=== PATIENT | male | born 1945 | race Caucasian/White ===

== ENCOUNTER 2021-06-14 10:16 | Outpatient (REF) | payer MEDICARE, SELFPAY ==
[2021-06-14 10:23] LABS: MANUAL DIFF FLAG NO
[2021-06-14 10:54] LABS: Basophils Percent Auto 0.4 % (0-2); Eosinophils Absolute Auto 0.1 X10*3/uL (0.0-0.4); Eosinophils Percent Auto 3.2 % (0-4); Hematocrit 39.6 % (42-52); Hemoglobin 13.9 g/dl (14.0-18.0); Imm Gran Abs Auto 0.01 X10*3/uL (0.00-0.03); Imm Gran Pct Auto 0.4 % (0.0-0.4); Lymphocytes Absolute Auto 0.8 X10*3/uL (1.2-4.9); Lymphocytes Percent Auto 29.1 % (20-40); Mean Corpuscular HGB Conc 35.1 g/dl (31.0-36.0); Mean Corpuscular Hemoglobin 33.8 pg (27.0-33.0); Mean Corpuscular Volume 96.4 fL (80-98); Mean Platelet Volume 10.1 fL (9.4-12.4); Monocytes Absolute Auto 0.4 X10*3/uL (0.1-1.2); Monocytes Percent Auto 12.6 % (2-11); Neutrophils Absolute Auto 1.5 X10*3/uL (2.0-8.3); Neutrophils Percent Auto 54.3 % (45-73); Red Blood Count 4.11 X10*6/uL (4.60-5.80); Red Cell Distribution Width 15.3 % (11.0-16.0); White Blood Count 2.8 X10*3/uL (4.8-10.8)
[2021-06-14 10:55] LABS: Platelet Count 71 X10*3/uL (160-400)
[2021-06-14 11:35] LABS: Alanine Aminotransferase 31 U/L (0-40); Albumin Level 3.5 g/dL (3.5-5.0); Alkaline Phosphatase 113 U/L (39-117); Anion Gap 12 (12-20); Aspartate Amino Transferase 48 U/L (5-37); Bilirubin Total 2.2 mg/dL (0.0-1.0); Blood Urea Nitrogen 15 mg/dL (9-16); Calcium 8.7 mg/dL (8.4-10.2); Carbon Dioxide 22 mmol/L (22-29); Chloride 110 mmol/L (96-108); Cholesterol 102 mg/dL; Estimated Glomerular Filt Rate > 60; Glucose Fasting 248 mg/dL (60-99); HDL Cholesterol 35 mg/dL; LDL Cholesterol Calculated 56 mg/dl; Potassium 4.7 mmol/L (3.3-5.1); Sodium 139 mmol/L (135-145); Total Protein 6.8 g/dL (6.5-8.0); Triglycerides 59 mg/dL
[2021-06-14 11:56] LABS: Prostate Specific Antigen 0.57 ng/mL (<0.05-4.0)
[2021-06-14 13:09] LABS: Reflex LDLD? No
[2021-06-18 13:20] LABS: Alpha Fetoprotein 1.1 ng/mL (<6.1)
== END 2021-06-14 10:17 | disposition home or self-care (01) ==
LOC: HO.LNP 10:16
PROVIDERS: Visit Provider Internal Medicine
DX: Z12.5 Encounter for screening for malignant neoplasm of prostate (principal); K70.30 Alcoholic cirrhosis of liver without ascites; K72.90 Hepatic failure, unspecified without coma; D69.6 Thrombocytopenia, unspecified
CPT/HCPCS: 80053; 80061; 82105; 84153; 85025

== ENCOUNTER 2021-07-07 08:59 | Outpatient (REF) | payer MEDICARE, SELFPAY ==
--- NOTE | ~2021-07-07 | US_ITS ---
EXAMINATION: US ABDOMEN COMPLETE CLINICAL INFORMATION: Alcoholic cirrhosis of liver without ascites. COMPARISON: None TECHNIQUE: Real-time imaging of the abdominal viscera. FINDINGS: PANCREAS: Not well visualized due to bowel gas ABDOMINAL AORTA: The upper abdominal aorta is not well visualized due to bowel gas. The mid and distal abdominal aorta are normal in caliber. INFERIOR VENA CAVA: Visualized portions are normal. LIVER: The liver is cirrhotic. Liver echotexture is heterogeneous. No focal liver lesion is seen. There is a tips shunt with appropriate hepatopedal flow. There is a large recanalized paraumbilical vein. There is no intrahepatic biliary duct dilatation. GALLBLADDER: Normal. The gallbladder is physiologically distended without evidence of stones, sludge, polyps, wall thickening or pericholecystic fluid. COMMON BILE DUCT: Normal in caliber measuring 0.2 cm in diameter. RIGHT KIDNEY: Normal. No hydronephrosis. No renal calculi or focal parenchymal lesions. The kidney measures 10.4 cm in maximum dimension. LEFT KIDNEY: Normal. No hydronephrosis. No renal calculi or focal parenchymal lesions. The kidney measures 11.3 cm in maximum dimension. SPLEEN: The spleen is enlarged. The spleen measures 18.6 cm in maximum dimension. There is a 2.7 x 2.6 x 2.2 cm splenule. FREE FLUID: None. US/US abdomen complete IMPRESSION: Cirrhotic-appearing liver. Patent tips shunt. Splenomegaly. No ascites. Limited visualization of the pancreas and aorta.
== END 2021-07-07 09:00 | disposition home or self-care (01) ==
LOC: HO.US 08:59
PROVIDERS: PCP Internal Medicine; Visit Provider Internal Medicine
DX: K70.30 Alcoholic cirrhosis of liver without ascites (principal)
CPT/HCPCS: 76700

== ENCOUNTER 2021-08-26 16:31 | Emergency (ER) | payer MEDICARE, SELFPAY ==
--- NOTE | ~2021-08-26 | XR_ITS ---
EXAMINATION: XR TIBIA AND FIBULA, RIGHT CLINICAL INFORMATION: Nonhealing wound. Evaluate for osteomyelitis. COMPARISON: No similar priors. TECHNIQUE: AP and lateral views of the right tibia and fibula were obtained. FINDINGS: No acute fractures or malalignment. No definite cortical disruptions or erosions to suggest osteomyelitis. There is mild diffuse soft tissue edema without evidence of radiopaque foreign bodies or joint effusions. XR/XR tibia fibula RT 2V IMPRESSION: No obvious cortical disruptions or destructive changes to suggest osteomyelitis. However, early osteomyelitis can be radiographically occult; therefor if clinical concerning remains elevated, consider interval imaging in a few days or further evaluation with a different modality such as MR of the area of clinical concern. No acute fractures. Anatomic alignment.
[2021-08-26 16:36] VITALS: BP 136/68; PULSE 69; RESP 18; TEMP 36.6; O2SAT 95; BMI 24.4
[2021-08-26 17:34] VITALS: BP 155/70; PULSE 66; RESP 18; TEMP 36.7; O2SAT 97
[2021-08-26] MEDS: Diphth,Pertus(ACell),Tet Adult 0.5 ML SYRINGE IM (17:56)
--- NOTE | 2021-08-26 18:19 | ED_ITS ---
HPI - Wound/Laceration General Chief Complaint: Wound/Laceration Stated Complaint: wound on rt leg Time Seen by Provider: 08/26/21 16:50 Source: patient Mode of arrival: ambulatory Limitations: no limitations History of Present Illness HPI narrative: Patient presents to the ED for wound on right leg after hitting leg on his car while trying to enter his car 3 weeks ago. Patient denies fall to the ground or any pain. Patient's states no fever or chills, nausea, vomiting, leg swelling, calf pain, pus discharge,or foul odor since incident. Patient states having same wound since minor trauma occurred. Patient was concerned because he is diabetic. Related Data Previous Rx's Medication Instructions Recorded clindamycin HCl 300 mg capsule 300 mg PO Q8H 10 Days #30 cap 08/26/21 Allergies Allergy/AdvReac Type Severity Reaction Status Date / Time Penicillins [PENICILLINS] Allergy Unknown UNKNOWN Unverified 07/30/20 15:18 Review of Systems Review of Systems: Yes all other systems are reviewed and are negative Constitutional: Constitutional: Reports as per HPI Eyes: Eyes: Reports as per HPI ENT: Reports system reviewed and no additional complaints, except as documented Cardiovascular: Cardiovascular: Reports as per HPI and Reports no additional cardiovascular complaints Respiratory: Respiratory: Reports as per HPI and Reports no additional respiratory complaints Gastrointestinal: Gastrointestinal: Reports as per HPI and Reports no additional gastrointestinal complaints Genitourinary: Genitourinary: Reports no additional male genitourinary complaints and Reports as per HPI Musculoskeletal: Musculoskeletal: Reports no additional musculoskeletal complaints and Reports as per HPI Comments: Right leg wound Neurologic: Reports system reviewed and no additional complaints, except as documented and Reports as per HPI Psychiatric: Psychiatric: Reports no additional psychiatric complaints and Reports as per HPI [facility] Social History Social History Alcohol intake: never Patient Tobacco Use Status: Never used Tobacco Smoked in Last 30 Days: Yes Use of substances other than those prescribed or required for medical reasons: No Advance Directives: No Advance Directives Information Provided: No Physical Exam Vital Signs: Vital Signs: Last Vital Signs Temp 98.1 F 08/26/21 17:34 Pulse 66 08/26/21 17:34 Resp 18 08/26/21 17:34 BP 155/70 H 08/26/21 17:34 Pulse Ox 97 08/26/21 17:34 Body Mass Index 24.4 Const: General: cooperative, healthy appearing, comfortable, no acute distress, well developed, alert, awake and Physically active Orientation/consciousness: patient oriented x3 HENMT: Head: Yes normal to inspection, Yes No palpable skull fracture present, Yes normocephalic, Yes atraumatic and No abrasion Eyes: General: appearance normal, both eyes and all related structures Neck: Neck: Yes normal visual inspection, Yes full ROM, Yes no lymphadenopathy, Yes no meningeal signs, Yes trachea midline, Yes supple and No tender Chest: Chest palpation & inspection: normal inspection of the chest and normal palpation of entire chest wall Resp: Effort & Inspection: normal respiratory effort and able to speak in complete sentences Cardio: Jugular venous distension: no JVD Heart sounds: S1 normal heart ofelia nd present and S2 normal heart sound present GI: Inspection: Yes normal to inspection and No abdominal wall ecchymosis Palpation (GI): Soft to palpation, not firm, nontender, no guarding and not rigid : General: No CVA tenderness and Yes no CVA tenderness Back/Spine/Pelvis: Back: no CVA tenderness, No CVA tenderness and No back tenderness Skin: General skin exam: no rashes or lesions noted and elasticity normal Neuro: General: patient oriented x3, gait normal, no meningeal signs and CN's II-XI intact bilaterally Cranial nerves: Yes CN's II-XII intact bilaterally Extrem: Other: Wounds are more like abrasions. Negative for any pus discharge, foul odor, tenderness, or ecchymosis. Positive for pedal pulses. Negative for wounds. Motor, neuro, and vascular exam is intact. General: Yes normal to inspection and Yes full ROM Psych: Appearance: grossly normal, well kempt and not disheveled Course Course Course Narrative: Abrasions. What we will do labs and x-ray. Reevaluation(s) Reevaluation #1: Patient's x-ray came back negative for osteomyelitis. Patient labs came back with low platelets and anemia. Also mild liver abnormality. I went To discuss lab results twith patient and patient states he is already aware and has history of low platelets, anemia, and abnormal liver enzymes. He states he has a history of liver issues due to history of alcohol abuse. Patient states he has been sober for some years. Patient denies any rectal bl eeding or vomiting blood. Patient informed to follow-up with his primary care provider. Patient will be discharged with antibiotics due to history of diabetes to prevent any infection. Patient informed to follow-up with wound clinic. Time: 19:51 MDM - Wound/Laceration MDM Narrative Medical decision making narrative: Sent 50 13:00 Lab Data Result diagrams: 08/26/21 19:11 08/26/21 19:11 Labs: Lab Results 08/26/21 08/26/21 Range/Units 19:11 19:11 WBC 3.6 L (4.8-10.8) X10*3/uL RBC 3.57 L (4.60-5.80) X10*6/uL Hgb 12.4 L (14.0-18.0) g/dl Hct 33.6 L (42-52) % MCV 94.1 (80-98) fL MCH 34.7 H (27.0-33.0) pg MCHC 36.9 H (31.0-36.0) g/dl RDW 13.9 (11.0-16.0) % Plt Count 57 L (160-400) X10*3/uL MPV 10.2 (9.4-12.4) fL Immature Gran % (Auto) 0.3 (0.0-0.4) % Neut % (Auto) 54.1 (45-73) % Lymph % (Auto) 30.1 (20-40) % [place] % (Auto) 12.4 H (2-11) % Eos % (Auto) 2.8 (0-4) % Baso % (Auto) 0.3 (0-2) % Lymph # (Auto) 1.1 L (1.2-4.9) X10*3/uL [place] # (Auto) 0.4 (0.1-1.2) X10*3/uL Eos # (Auto) 0.1 (0.0-0.4) X10*3/uL Baso # (Auto) 0.0 (0.0-0.2) X10*3/uL Abs Immat Gran (auto) 0.01 (0.00-0.03) X10*3/uL Absolute Neuts (auto) 1.9 L (2.0-8.3) X10*3/uL Absolute Nucleated RBC 0.000 (0.0-0.012) X10*3/uL Nucleated RBC % (auto) 0.0 (0.0-0.2) /100WBC Sodium 141 (135-145) mmol/L Potassium 5.1 (3.3-5.1) mmol/L Chloride 112 H (96-108) mmol/L Carbon Dioxide 25 (22-29) mmol/L Anion Gap 9 L (12-20) BUN 17 H (9-16) mg/dL Creatinine 0.84 (0.5-1.4) mg/dL Estim Creat Clear Calc 80.8 Estimated GFR > 60 Random Glucose 156 H (60-115) mg/dL Calcium 8.6 (8.4-10.2) mg/dL Total Bilirubin 1.8 H (0.0-1.0) mg/dL AST 54 H (5-37) U/L ALT 33 (0-40) U/L Alkaline Phosphatase 121 H (39-117) U/L Total Protein 6.7 (6.5-8.0) g/dL Albumin 3.2 L (3.5-5.0) g/dL Discharge Plan Discharge Clinical Impression: Abrasion, Non-healing wound of right upper extremity Patient Disposition: Home, Self-Care Instructions: Abrasion (ED) Additional Instructions: Return to the ED for any swelling of lower extremity, pus discharge, foul odor, fever, chills, red streaks, redness, bluish black discoloration, chest pain, shortness of breath, numbness/tingling, or any other concerning symptoms. Prescriptions: New clindamycin HCl 300 mg capsule 300 mg PO Q8H 10 Days Qty: 30 RF: 0 Referrals: [facility] Wound Care Management [Provider Group] - 2 days (Right lower extremity abrasion/nonhealing wound after trauma. X-ray negative for osteomyelitis. Labs are baseline.) Interventions: ED Discharge Assessment Last Done: 08/26/21 20:08 Discharge Date/Time: 08/26/21 20:09 Print Language: Ukrainian
[2021-08-26 19:15] LABS: MANUAL DIFF FLAG NO
[2021-08-26 19:16] LABS: Basophils Percent Auto 0.3 % (0-2); Eosinophils Absolute Auto 0.1 X10*3/uL (0.0-0.4); Eosinophils Percent Auto 2.8 % (0-4); Hematocrit 33.6 % (42-52); Hemoglobin 12.4 g/dl (14.0-18.0); Imm Gran Abs Auto 0.01 X10*3/uL (0.00-0.03); Imm Gran Pct Auto 0.3 % (0.0-0.4); Lymphocytes Absolute Auto 1.1 X10*3/uL (1.2-4.9); Lymphocytes Percent Auto 30.1 % (20-40); Mean Corpuscular HGB Conc 36.9 g/dl (31.0-36.0); Mean Corpuscular Hemoglobin 34.7 pg (27.0-33.0); Mean Corpuscular Volume 94.1 fL (80-98); Mean Platelet Volume 10.2 fL (9.4-12.4); Monocytes Absolute Auto 0.4 X10*3/uL (0.1-1.2); Monocytes Percent Auto 12.4 % (2-11); Neutrophils Absolute Auto 1.9 X10*3/uL (2.0-8.3); Neutrophils Percent Auto 54.1 % (45-73); Platelet Count 57 X10*3/uL (160-400); Red Blood Count 3.57 X10*6/uL (4.60-5.80); Red Cell Distribution Width 13.9 % (11.0-16.0); White Blood Count 3.6 X10*3/uL (4.8-10.8)
[2021-08-26 19:35] LABS: Alanine Aminotransferase 33 U/L (0-40); Albumin Level 3.2 g/dL (3.5-5.0); Alkaline Phosphatase 121 U/L (39-117); Anion Gap 9 (12-20); Aspartate Amino Transferase 54 U/L (5-37); Bilirubin Total 1.8 mg/dL (0.0-1.0); Blood Urea Nitrogen 17 mg/dL (9-16); Calcium 8.6 mg/dL (8.4-10.2); Carbon Dioxide 25 mmol/L (22-29); Chloride 112 mmol/L (96-108); Creatinine Clr Calc Pharmacy 80.8; Estimated Glomerular Filt Rate > 60; Glucose Random 156 mg/dL (60-115); Potassium 5.1 mmol/L (3.3-5.1); Sodium 141 mmol/L (135-145); Total Protein 6.7 g/dL (6.5-8.0)
== END 2021-08-26 20:09 | disposition home or self-care (01) ==
PROVIDERS: Physician Assistant; Emergency Provider Emergency Medicine; PCP Internal Medicine
DX: S80.811A Abrasion, right lower leg, initial encounter (principal); E11.9 Type 2 diabetes mellitus without complications; D64.9 Anemia, unspecified; D69.6 Thrombocytopenia, unspecified; X58.XXXA Exposure to other specified factors, initial encounter; Y93.9 Activity, unspecified; Y92.9 Unspecified place or not applicable; Y99.9 Unspecified external cause status
CPT/HCPCS: 36415; 73590; 80053; 85025; 90471; 90715; 99284

== ENCOUNTER 2021-09-27 10:36 | Outpatient (REF) | payer MEDICARE, SELFPAY ==
[2021-09-27 10:39] LABS: MANUAL DIFF FLAG NO
[2021-09-27 11:26] LABS: Basophils Percent Auto 0.6 % (0-2); Eosinophils Absolute Auto 0.1 X10*3/uL (0.0-0.4); Eosinophils Percent Auto 1.7 % (0-4); Hematocrit 39.2 % (42.0-52.0); Hemoglobin 13.9 g/dl (14.0-18.0); Imm Gran Abs Auto 0.01 X10*3/uL (0.00-0.03); Imm Gran Pct Auto 0.3 % (0.0-0.4); Lymphocytes Absolute Auto 1.3 X10*3/uL (1.2-4.9); Lymphocytes Percent Auto 37.1 % (20-40); Mean Corpuscular HGB Conc 35.5 g/dl (31.0-36.0); Mean Corpuscular Hemoglobin 34.2 pg (27.0-33.0); Mean Corpuscular Volume 96.6 fL (80.0-98.0); Mean Platelet Volume 10.9 fL (9.4-12.4); Monocytes Absolute Auto 0.4 X10*3/uL (0.1-1.2); Neutrophils Absolute Auto 1.7 x10*3/uL (2.0-8.3); Neutrophils Percent Auto 49.3 % (45-73); Red Blood Count 4.06 X10*6/uL (4.60-5.80); Red Cell Distribution Width 14.2 % (11.0-16.0); White Blood Count 3.5 X10*3/uL (4.8-10.8)
[2021-09-27 11:35] LABS: Platelet Count 72 X10*3/uL (160-400)
== END 2021-09-27 10:37 | disposition home or self-care (01) ==
LOC: HO.LNP 10:36
PROVIDERS: Visit Provider Internal Medicine
DX: D69.6 Thrombocytopenia, unspecified (principal)
CPT/HCPCS: 85025

== ENCOUNTER 2021-12-26 13:03 | Inpatient (IN) | payer MEDICARE, SELFPAY ==
--- NOTE | ~2021-12-26 | CT_ITS ---
EXAMINATION: CT ABDOMEN AND PELVIS WITHOUT CONTRAST CLINICAL INFORMATION: Lower GI bleed. Rule out extensive colitis. COMPARISON: Ultrasound abdomen 07/07/2021 TECHNIQUE: Multidetector volumetric imaging was performed from the superior aspect of the liver through the pubic symphysis. Sagittal and coronal reformatted images were obtained on the technologist's workstation. This CT examination was performed using dose optimization techniques as appropriate, variously including the following: *Automated exposure control *Adjustment of mA and/or kV according to patient size (this includes techniques or standardized protocols for targeted exams where dose is matched to indication/reason for exam; i.e. extremities or head) *Use of iterative reconstruction technique DLP: 550 mGy-cm FINDINGS: LUNG BASES: The lung bases are clear. LIVER, GALLBLADDER, AND BILIARY TREE: The liver is normal in size, shape, and slightly heterogeneous attenuation. There is a stent following TIPS procedure. No focal hepatic lesion or biliary ductal dilatation is present. The gallbladder is unremarkable with no evidence of radiopaque gallstones, gallbladder wall thickening, or obvious pericholecystic inflammatory changes. PANCREAS: Unremarkable. SPLEEN: The spleen is enlarged measuring 17 cm. Adjacent and medial to the spleen are coils likely from splenic artery aneurysm coiling. ADRENAL GLANDS: The left adrenal gland appears slightly plump but suboptimally visualized. The right adrenal gland is normal. KIDNEYS AND URETERS: The kidneys are normal in size, shape, and attenuation. No hydronephrosis, hydroureter, or calculi seen. No perinephric stranding. BLADDER: Unremarkable. GASTROINTESTINAL TRACT: There is scattered stool and gas seen throughout the colon without any significant distention. There is a hyperdense material seen throughout the descending colon. The small bowel loops are normal caliber. No free air or free fluid seen. ABDOMINAL WALL: No significant hernia is appreciated. LYMPH NODES: Normal. VASCULAR: Unremarkable. PELVIC VISCERA: Unremarkable. OSSEOUS STRUCTURES: There are degenerative disc changes and vacuum disc phenomenon at all lumbar disc levels sparing the L5-S1 disc. There is mild spondylosis seen throughout lower dorsal and lumbar spine. No lytic or sclerotic process seen. CT/CT abdomen pelvis wo con IMPRESSION: No acute intra-abdominal process seen. Splenomegaly. 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 Mild heterogeneous liver with evidence of previous TIPS procedure. There is no ascites. Fleischner guidelines were followed.
[2021-12-26 13:21] VITALS: BP 132/58; PULSE 59; RESP 16; TEMP 36.1; O2SAT 99; BMI 24.4
[2021-12-26 13:39] LABS: MANUAL DIFF FLAG NO
[2021-12-26 13:50] LABS: Basophils Percent Auto 0.3 % (0-2); Eosinophils Absolute Auto 0.1 X10*3/uL (0.0-0.4); Eosinophils Percent Auto 2.4 % (0-4); Hematocrit 36.8 % (42.0-52.0); Hemoglobin 13.4 g/dl (14.0-18.0); Imm Gran Abs Auto 0.01 X10*3/uL (0.00-0.03); Imm Gran Pct Auto 0.3 % (0.0-0.4); Lymphocytes Absolute Auto 0.7 X10*3/uL (1.2-4.9); Lymphocytes Percent Auto 24.6 % (20-40); Mean Corpuscular HGB Conc 36.4 g/dl (31.0-36.0); Mean Corpuscular Hemoglobin 34.3 pg (27.0-33.0); Mean Corpuscular Volume 94.1 fL (80.0-98.0); Monocytes Absolute Auto 0.4 X10*3/uL (0.1-1.2); Monocytes Percent Auto 13.1 % (2-11); Neutrophils Absolute Auto 1.8 x10*3/uL (2.0-8.3); Neutrophils Percent Auto 59.3 % (45-73); Red Blood Count 3.91 X10*6/uL (4.60-5.80); Red Cell Distribution Width 13.8 % (11.0-16.0)
[2021-12-26 13:51] LABS: Platelet Count 62 X10*3/uL (160-400)
[2021-12-26 13:55] LABS: INTERNATIONAL NORM RATIO 1.5 (0.9-1.1); Prothrombin Time 16.8 SEC (9.9-13.0)
[2021-12-26 14:04] LABS: Anion Gap 8 (12-20); Blood Urea Nitrogen 13 mg/dL (9-16); Calcium 8.8 mg/dL (8.4-10.2); Carbon Dioxide 27 mmol/L (22-29); Chloride 105 mmol/L (96-108); Creatinine Clr Calc Pharmacy 79.8; Estimated Glomerular Filt Rate > 60; Glucose Random 258 mg/dL (60-115); Potassium 4.4 mmol/L (3.3-5.1); Sodium 136 mmol/L (135-145)
[2021-12-26 16:34] VITALS: BP 157/61; PULSE 59; RESP 18; O2SAT 100
--- NOTE | 2021-12-26 16:44 | ED.GIBLEED ---
HPI - GI Bleed General Chief complaint: GI Bleed Stated complaint: bleeding from rectum Time Seen by Provider: 12/26/21 16:35 Source: patient Mode of arrival: ambulatory Limitations: no limitations History of Present Illness HPI Narrative: This is a 76-year-old male came into the emergency department for evaluation of rectal bleeding. Rectal bleeding started since early this morning, patient describes bright red blood from the rectum, symptoms started about 4 days ago with nonbloody watery diarrhea without nausea or vomiting, today nonbloody watery diarrhea progressed to bright red blood per rectum, patient declined abdominal pain or nausea or vomiting, no fever or chills, no recent travel, no recent use of antibiotics, no history of bad food that the patient might have ingested, patient declined using anticoagulation. Last colonoscopy was 3-4 years ago done in different state reportedly was normal. Related Data Previous Rx's Medication Instructions Recorded clindamycin HCl 300 mg capsule 300 mg PO Q8H 10 Days #30 cap 08/26/21 Allergies Allergy/AdvReac Type Severity Reaction Status Date / Time Penicillins [PENICILLINS] Allergy Unknown UNKNOWN Unverified 07/30/20 15:18 Review of Systems Review of Systems: All other systems are reviewed and are negative Constitutional: Reports as per HPI and Reports no additional constitutional complaints Eyes: Reports as per HPI and Reports no additional eye complaints Reports system reviewed and no additional complaints, except as documented Cardiovascular: Reports as per HPI and Reports no additional cardiovascular complaints Respiratory: Reports as per HPI and Reports no additional respiratory complaints Gastrointestinal: Reports as per HPI and Reports no additional gastrointestinal complaints Genitourinary: Reports no additional female genitourinary complaints Musculoskeletal: Reports no additional musculoskeletal complaints Skin/Breast: Reports system reviewed and no additional complaints, except as docu Psychiatric: Reports no additional psychiatric complaints Endocrine: Reports no additional endocrine complaints Hematologic/Lymphatic: Reports no additional hematologic/lymphatic complaints Allergic/Immunologic: Reports no additional allergic/immunologic complaints Reports system reviewed and no additional complaints, except as documented and Reports Abnormal speech present [facility] Past Medical History Medical History Alcohol abuse Diabetes 1.5, managed as type 2 Social History Social History Alcohol intake: former Patient Tobacco Use Status: Never used Tobacco Use of substances other than those prescribed or required for medical reasons: No Advance Directives: No Advance Directives Information Provided: No Physical Exam Vital Signs: Vital Signs: Last Vital Signs Temp 97.6 F 12/26/21 18:15 Pulse 60 12/26/21 18:15 Resp 18 12/26/21 18:15 BP 145/82 H 12/26/21 18:15 Pulse Ox 99 12/26/21 18:15 BMI result Body Mass Index 24.4 Vital signs have been reviewed as appeared to be correct. Blood pressure normal. Heart rate normal. Respiration rate normal. Temperature normal. Oxygen saturation normal. Appearance: Alert. Oriented X3. No acute distress. Head: Normal external exam. Normocephalic. Atraumatic. No Siddiqi signs noted. No raccoon eyes noted Eyes: PERRLA. EOMI. Conjunctiva and sclera normal. Eyelids normal. ENT: TM's Normal. Pharynx normal. Uvula midline. Moist mucous membranes. No trismus noted. No drooling noted. No muffled voice noted. Neck: Normal inspection. Neck supple. FROM. No adenopathy. Thyroid Normal. No meningeal signs. No neck mass noted. CVS: Normal heart rate and rhythm. Heart sound normal. No murmurs noted. Pulses normal throughout. Respiratory: No respiratory distress. Painless inspiration. Breath sounds normal. No wheezes/rales/rhonchi noted. Chest nontender. No accessory muscle usage noted or decreased air movement noted. Abdomen: Soft and nontender. Bowel sounds normal in all 4 quadrants. No distention noted. No organomegaly noted. No visible injury noted. Rectal exam: Bright red blood per rectum, no active bleeding, no external hemorrhoid, no palpable internal hemorrhoid is appreciated. Back: No CVA tenderness. Full range of motion noted. Skin: Skin warm and dry. Normal skin color. Normal skin turgor. No rashes/lesions/lacerations noted. Extremities: No lower extremity edema. Extremities exhibit normal range of motion. Extremities nontender. Neuro: Oriented X 3. Cranial nerve exam: II-XII are grossly intact No motor deficit. No sensory deficit. Reflexes normal. Course Course Course Narrative: Assessment and plan. 76 years old male came in for evaluation of bright red blood per rectum, patient otherwise hemodynamically stable, CT is unremarkable, labs are also at his baseline. Will need observation, monitoring vital signs, serial CBC, urgent GI consult, will keep the patient NPO. MDM - GI Bleed Lab Data Attestation: I reviewed the patient's lab results. Result diagrams: 12/26/21 13:35 12/26/21 13:35 Labs: Lab Results 12/26/21 12/26/21 12/26/21 Range/Units 13:35 13:35 13:35 WBC 3.0 L (4.8-10.8) X10*3/uL RBC 3.91 L (4.60-5.80) X10*6/uL Hgb 13.4 L (14.0-18.0) g/dl Hct 36.8 L (42.0-52.0) % MCV 94.1 (80.0-98.0) fL MCH 34.3 H (27.0-33.0) pg MCHC 36.4 H (31.0-36.0) g/dl RDW 13.8 (11.0-16.0) % Plt Count 62 L (160-400) X10*3/uL MPV 11.0 (9.4-12.4) fL Immature Gran % (Auto) 0.3 (0.0-0.4) % Neut % (Auto) 59.3 (45-73) % Lymph % (Auto) 24.6 (20-40) % [place] % (Auto) 13.1 H (2-11) % Eos % (Auto) 2.4 (0-4) % Baso % (Auto) 0.3 (0-2) % Lymph # (Auto) 0.7 L (1.2-4.9) X10*3/uL [place] # (Auto) 0.4 (0.1-1.2) X10*3/uL Eos # (Auto) 0.1 (0.0-0.4) X10*3/uL Baso # (Auto) 0.0 (0.0-0.2) X10*3/uL Abs Immat Gran (auto) 0.01 (0.00-0.03) X10*3/uL Absolute Neuts (auto) 1.8 L (2.0-8.3) x10*3/uL Absolute Nucleated RBC 0.000 (0.0-0.012) X10*3/uL Nucleated RBC % (auto) 0.0 (0.0-0.2) /100WBC PT 16.8 H (9.9-13.0) SEC INR 1.5 H (0.9-1.1) Sodium 136 (135-145) mmol/L Potassium 4.4 (3.3-5.1) mmol/L Chloride 105 (96-108) mmol/L Carbon Dioxide 27 (22-29) mmol/L Anion Gap 8 L (12-20) BUN 13 (9-16) mg/dL Creatinine 0.85 (0.5-1.4) mg/dL Estim Creat Clear Calc 79.8 Estimated GFR > 60 Random Glucose 258 H D (60-115) mg/dL Calcium 8.8 (8.4-10.2) mg/dL Total Bilirubin 2.3 H (0.0-1.0) mg/dL Direct Bilirubin 0.5 (0.0-0.5) mg/dL AST 42 H (5-37) U/L ALT 29 (0-40) U/L Alkaline Phosphatase 94 D (39-117) U/L Total Protein 6.8 (6.5-8.0) g/dL Albumin 3.4 L (3.5-5.0) g/dL Lipase 46 (8-78) U/L Stool Occult Blood (NEGATIVE) 12/26/21 Range/Units 16:51 WBC (4.8-10.8) X10*3/uL RBC (4.60-5.80) X10*6/uL Hgb (14.0-18.0) g/dl Hct (42.0-52.0) % MCV (80.0-98.0) fL MCH (27.0-33.0) pg MCHC (31.0-36.0) g/dl RDW (11.0-16.0) % Plt Count (160-400) X10*3/uL MPV (9.4-12.4) fL Immature Gran % (Auto) (0.0-0.4) % Neut % (Auto) (45-73) % Lymph % (Auto) (20-40) % [place] % (Auto) (2-11) % Eos % (Auto) (0-4) % Baso % (Auto) (0-2) % Lymph # (Auto) (1.2-4.9) X10*3/uL [place] # (Auto) (0.1-1.2) X10*3/uL Eos # (Auto) (0.0-0.4) X10*3/uL Baso # (Auto) (0.0-0.2) X10*3/uL Abs Immat Gran (auto) (0.00-0.03) X10*3/uL Absolute Neuts (auto) (2.0-8.3) x10*3/uL Absolute Nucleated RBC (0.0-0.012) X10*3/uL Nucleated RBC % (auto) (0.0-0.2) /100WBC PT (9.9-13.0) SEC INR (0.9-1.1) Sodium (135-145) mmol/L Potassium (3.3-5.1) mmol/L Chloride (96-108) mmol/L Carbon Dioxide (22-29) mmol/L Anion Gap (12-20) BUN (9-16) mg/dL Creatinine (0.5-1.4) mg/dL Estim Creat Clear Calc Estimated GFR Random Glucose (60-115) mg/dL Calcium (8.4-10.2) mg/dL Total Bilirubin (0.0-1.0) mg/dL Direct Bilirubin (0.0-0.5) mg/dL AST (5-37) U/L ALT (0-40) U/L Alkaline Phosphatase (39-117) U/L Total Protein (6.5-8.0) g/dL Albumin (3.5-5.0) g/dL Lipase (8-78) U/L Stool Occult Blood POSITIVE (NEGATIVE) Imaging Data CT scan - abdomen: Attestation: I personally reviewed and interpreted this imaging study as follows: Radiologist's impression: No acute intra-abdominal process seen. ? Splenomegaly. 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 ? Mild heterogeneous liver with evidence of previous TIPS procedure. ? There is no ascites. Discharge Plan Discharge Clinical Impression: Lower gastrointestinal hemorrhage Patient Disposition: Admitted As Inpatient Prescriptions: No Action clindamycin HCl 300 mg capsule 300 mg PO Q8H 10 Days Qty: 30 0RF
[2021-12-26 16:57] LABS: OBS Int Ctl Valid YES; OBS1 POSITIVE (NEGATIVE)
[2021-12-26 17:25] LABS: Alanine Aminotransferase 29 U/L (0-40); Albumin Level 3.4 g/dL (3.5-5.0); Alkaline Phosphatase 94 U/L (39-117); Aspartate Amino Transferase 42 U/L (5-37); Bilirubin Direct 0.5 mg/dL (0.0-0.5); Bilirubin Total 2.3 mg/dL (0.0-1.0); Lipase 46 U/L (8-78); Total Protein 6.8 g/dL (6.5-8.0)
[2021-12-26 18:15] VITALS: BP 145/82; PULSE 60; RESP 18; TEMP 36.4; O2SAT 99
--- NOTE | 2021-12-26 20:40 | P.HPHOSP_ITS ---
History of Present Illness Date of Service: 12/26/21 Chief Complaint: bleeding per rectum This is a 76-year-old male with past medical history of alcohol abuse with history of liver cirrhosis and previous TIPS procedure and diabetes presents to the hospital with complaints of bright red blood per rectum. Patient reports that it occurred today, about 2-3 episodes, He has also had diarrhea for the past 4 days following every meal but today turned bright red blood. He denies having any abdominal pain, no nausea no vomiting, no hematemesis or hemoptysis. He reports that he has also had black stools in the past. He has had a colonoscopy in [place] in 2016/2017 which was normal. He denies taking any NSAIDs. Patient has a history of alcohol abuse but has not had any drink for years. He denies having any history of heartburn or gastric ulcers. He denies any chest pain, no shortness of breath, no urinary symptoms. No lower extremity edema. No headache, change in vision, no dizziness, no palpitations. On arrival to the ED patient hemodynamically stable with slightly elevated blood pressure otherwise no significant abnormality Labs are significant for WBC count 3.5 which is around his baseline, hemoglobin 13.5, hematocrit of 36.8, PT of 16.8, INR of 1.5, glucose of 250, bilirubin of 2.3 which is chronically elevated, AST of 42, COVID-19 negative, stool blood occult positive. 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 Mild heterogeneous liver with evidence of previous tips procedure. No ascites. Patient will be admitted for further management Review of Systems Review of Systems: Yes all other systems are reviewed and are negative [facility] Medical History Alcohol abuse Diabetes 1.5, managed as type 2 Hypertension Family History Father Cancer Mother DVT (deep venous thrombosis) Surgical History S/P TIPS (transjugular intrahepatic portosystemic shunt) Social History Alcohol intake: never Patient Tobacco Use Status: Never used Tobacco Use of substances other than those prescribed or required for medical reasons: No Advance Directives: No Advance Directives Information Provided: No Meds Allergies Allergy/AdvReac Type Severity Reaction Status Date / Time Penicillins [PENICILLINS] Allergy Unknown UNKNOWN Unverified 07/30/20 15:18 Active Medications: Current Medications Acetaminophen (Acetaminophen 325 Mg Tablet) 650 mg PO Q6H PRN PRN Reason: Pain, Mild (Pain Scale 1-3) Docusate Sodium (Docusate Sodium 100 Mg Capsule) 100 mg PO DAILY PRN PRN Reason: Constipation Ondansetron HCl (Ondansetron Hcl 4 Mg/2 Ml Vial) 4 mg IVPUSH Q8H PRN PRN Reason: Nausea and Vomiting Sodium Chloride (0.9 % Sodium Chloride Flush 3 Ml Syringe) 3 ml IVFLUSH [facility] Medications Medication Instructions Recorded Confirmed Last Taken Type amlodipine 5 mg tablet 1 tab PO DAILY 12/26/21 12/26/21 12/26/21 History donepezil 10 mg tablet 1 tab PO BEDTIME 12/26/21 12/26/21 12/25/21 History ferrous sulfate 325 mg (65 mg 1 tab PO DAILY 12/26/21 12/26/21 12/26/21 History iron) tablet (iron) pantoprazole 40 mg tablet,delayed 1 tab PO DAILY 12/26/21 12/26/21 12/26/21 History release rifaximin 550 mg tablet (Xifaxan) 1 tab PO BID 12/26/21 12/26/21 12/26/21 History sitagliptin 100 mg tablet (Januvia) 1 tab PO DAILY 12/26/21 12/26/21 12/26/21 History Physical Exam Vital Signs and Narrative: Vital Signs: Last Vital Signs Temp 97.6 F 12/26/21 18:15 Pulse 60 12/26/21 18:15 Resp 18 12/26/21 18:15 BP 145/82 H 12/26/21 18:15 Pulse Ox 99 12/26/21 18:15 BMI result Body Mass Index 24.4 Const: General: cooperative and no acute distress Orientation/consciousness: patient oriented x3 Eyes: General: appearance normal, both eyes and all related structures Pupils: Equal, round and reactive pupils present Resp: Effort & Inspection: normal respiratory effort Auscultation: clear to auscultation bilaterally Cardio: Rate: regular rate Rhythm: regular rhythm GI: Other: No tenderness, rebound or guarding Palpation (GI): Soft to palpation Auscultation: normal bowel sounds Skin: General skin exam: no rashes or lesions noted Neuro: General: patient oriented x3 Cranial nerves: Yes Equal, round and reactive pupils present Cognition (Neuro): normal cognition Extrem: General: Yes normal to inspection and Yes no pedal edema Results Labs CBC and Chem 7: 12/26/21 21:49 12/26/21 13:35 Labs: Laboratory Results - last 24 hr 12/26/21 12/26/21 12/26/21 13:35 13:35 13:35 Hgb 13.4 L MCV 94.1 MCH 34.3 H MCHC 36.4 H RDW 13.8 Plt Count 62 L MPV 11.0 Immature Gran % (Auto) 0.3 Neut % (Auto) 59.3 Lymph % (Auto) 24.6 [place] % (Auto) 13.1 H Eos % (Auto) 2.4 Baso % (Auto) 0.3 Lymph # (Auto) 0.7 L [place] # (Auto) 0.4 Eos # (Auto) 0.1 Baso # (Auto) 0.0 Abs Immat Gran (auto) 0.01 Absolute Neuts (auto) 1.8 L Absolute Nucleated RBC 0.000 Nucleated RBC % (auto) 0.0 PT 16.8 H INR 1.5 H Anion Gap 8 L Estim Creat Clear Calc 79.8 Estimated GFR > 60 Random Glucose 258 H D Calcium 8.8 Total Bilirubin 2.3 H Direct Bilirubin 0.5 AST 42 H ALT 29 Alkaline Phosphatase 94 D Total Protein 6.8 Albumin 3.4 L Lipase 46 Stool Occult Blood 12/26/21 16:51 Hgb MCV MCH MCHC RDW Plt Count MPV Immature Gran % (Auto) Neut % (Auto) Lymph % (Auto) [place] % (Auto) Eos % (Auto) Baso % (Auto) Lymph # (Auto) [place] # (Auto) Eos # (Auto) Baso # (Auto) Abs Immat Gran (auto) Absolute Neuts (auto) Absolute Nucleated RBC Nucleated RBC % (auto) PT INR Anion Gap Estim Creat Clear Calc Estimated GFR Random Glucose Calcium Total Bilirubin Direct Bilirubin AST ALT Alkaline Phosphatase Total Protein Albumin Lipase Stool Occult Blood POSITIVE Imaging Radiologist's Impressions: Impressions Abdomen/Pelvis CT 12/26/21 18:00 IMPRESSION: No acute intra-abdominal process seen. Splenomegaly. 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 Mild heterogeneous liver with evidence of previous TIPS procedure. There is no ascites. Fleischner guidelines were followed. Assessment and Plan (1) Lower gastrointestinal hemorrhage: Status: Acute Plan This is a 76-year-old male with past medical history of alcohol abuse, as well as diabetes hypertension who presents to the hospital with complaints of bright red blood per rectum. # acute GI bleed - likely lower GI - does not have elevated BUN, no history of heartburn, no history of NSAID use - patient is hemodynamically stable - hemoglobin has remained stable - GI consulted, no urgency for colonoscopy at this time given his stable hemoglobin- will evaluate patient in a.m. - will place on pantoprazole 40 IV b.i.d.given hx of alcohol abuse and liver ds - follow CBC - clear liquid diet # hypertension - stable - will continue home antihypertensive # diabetes - hold oral antihyperglycemics - start low-dose sliding scale insulin DVT prophylaxis: SCDs Quality Stroke Does the patient have a stroke diagnosis?: No VTE Prior VTE?: No VTE Risk Level:: Medical - moderate - high VTE Device Contraindication: N/A - Device Ordered VTE Drug Contraindication: Treatment Not Indicated
--- NOTE | 2021-12-26 20:53 | PHA.MEDREC ---
Pharmacy Consult ? Medication Reconciliation Pharmacy has completed the medication reconciliation. No remarkable issues. Rach Chow, CristianD
[2021-12-26 21:56] LABS: Hemoglobin 13.5 g/dl (14.0-18.0); Mean Platelet Volume 10.1 fL (9.4-12.4); Monocytes Percent Auto 12.3 % (2-11); PLT CLUMP 1; Red Cell Distribution Width 13.4 % (11.0-16.0); SCAN SMEAR FLAG 1
[2021-12-26 21:57] LABS: Basophils Percent Auto 0.9 % (0-2); Eosinophils Absolute Auto 0.1 X10*3/uL (0.0-0.4); Eosinophils Percent Auto 2.6 % (0-4); Hematocrit 37.1 % (42.0-52.0); Imm Gran Abs Auto 0.01 X10*3/uL (0.00-0.03); Imm Gran Pct Auto 0.3 % (0.0-0.4); Lymphocytes Absolute Auto 1.1 X10*3/uL (1.2-4.9); Lymphocytes Percent Auto 32.4 % (20-40); MANUAL DIFF FLAG SCAN; Mean Corpuscular HGB Conc 36.4 g/dl (31.0-36.0); Mean Corpuscular Hemoglobin 33.8 pg (27.0-33.0); Monocytes Absolute Auto 0.4 X10*3/uL (0.1-1.2); Neutrophils Absolute Auto 1.8 x10*3/uL (2.0-8.3); Neutrophils Percent Auto 51.5 % (45-73); Red Blood Count 3.99 X10*6/uL (4.60-5.80)
[2021-12-26 22:13] LABS: Platelet Count 63 X10*3/uL (160-400); White Blood Count 3.5 X10*3/uL (4.8-10.8)
[2021-12-26 22:14] LABS: SLIDE REVIEW VERIFIED
[2021-12-26 22:45] VITALS: BP 135/78; PULSE 64; RESP 18; O2SAT 99
[2021-12-27 00:36] VITALS: BP 133/62; PULSE 61; RESP 14; TEMP 36.6; O2SAT 98
--- NOTE | 2021-12-27 01:40 | PC.NURSE ---
I assumed care of this pt at 1900. Since that time the pt has been alert and oriented x 3, resting in stretcher awaiting an inpatient bed assignment. He is TBADM and verbalizes an understanding of this. He states he came to the ED for evaluation of rectal bleeding. Since I arrived there has been nop bleeding, no abd. pain, no nausea or vomiting. Respirations are non-labored, no chest pain. He has been taking PO ice chips without difficulty. He has no complaints. We will continue to monitor BryonRobert
[2021-12-27 01:45] LABS: COVID-19 Test Negative (Negative)
[2021-12-27 04:52] VITALS: BP 142/78; PULSE 56; RESP 14; TEMP 36.8; O2SAT 97
[2021-12-27 07:10] LABS: Anion Gap 11 (12-20); Blood Urea Nitrogen 11 mg/dL (9-16); Calcium 8.5 mg/dL (8.4-10.2); Carbon Dioxide 26 mmol/L (22-29); Chloride 108 mmol/L (96-108); Creatinine Clr Calc Pharmacy 85.9; Estimated Glomerular Filt Rate > 60; Glucose Random 118 mg/dL (60-115); Potassium 4.2 mmol/L (3.3-5.1); Sodium 141 mmol/L (135-145)
--- NOTE | 2021-12-27 07:17 | PM.GICN ---
History of Present Illness Data of Consult Service Date: 12/27/21 Requesting physician: Yisel Au Primary Care Provider: Ramos Gibson MD HPI Reason for consult: rectal bleeding 76-year-old male with past medical history of alcohol abuse with history of liver cirrhosis and s/p TIPS procedure and diabetes who I am seeing for assessment of bright red blood per rectum.? Patient reports about 2-3 episodes of bleeding with diarrhea, for the past 4 days following every meal and few episodes of incontinence with soiling. ? He denies having any abdominal pain, no nausea no vomiting, no hematemesis or hemoptysis.? Denies melena. He has had a colonoscopy in [place] in 2017/2017 which was normal.? He denies taking any NSAIDs.? Patient has a history of alcohol abuse but has not had any drink for years.? He denies having any history of heartburn or gastric ulcers.? He denies any chest pain, no shortness of breath, no urinary symptoms.? No lower extremity edema.? No headache, change in vision, no dizziness, no palpitations. 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 Mild heterogeneous liver with evidence of previous tips procedure.? No ascites. Review of Systems Review of Systems: Constitutional : No Weight loss, No Fever, No Chills ENT/Mouth : No sore throat, No Rhinorrhea Eyes: No Swelling, No Redness Cardiovascular : No Chest Pain, No SOB, No Edema Respiratory : No Cough, No Sputum, No Wheezing Gastrointestinal : see HPI Genitourinary : NO Dysuria, No Urinary Frequency, No Hematuria, No Urgency Musculoskeletal : No joint pain, No Myalgias, No Joint Swelling Skin : No Skin Lesions, No rash Neuro : No Weakness, No Numbness, No Dizziness, No Headache Psych : No Anxiety/Panic, No Depression Heme/Lymph: No Bruising, No Lymphadenopathy Endocrine : No Polyuria, No Polydipsia All other systems reviewed and are negative. Yes all other systems are reviewed and are negative [facility] Past Medical History Medical History Alcohol abuse Diabetes 1.5, managed as type 2 Hypertension Family History Family History Father Cancer Mother DVT (deep venous thrombosis) Surgical History Surgical History S/P TIPS (transjugular intrahepatic portosystemic shunt) Social History Social History Alcohol intake: never Patient Tobacco Use Status: Never used Tobacco Use of substances other than those prescribed or required for medical reasons: No Advance Directives: No Advance Directives Information Provided: No service: No Current occupational status: retired [employer] Allergies Allergy/AdvReac Type Severity Reaction Status Date / Time Penicillins [PENICILLINS] Allergy Unknown UNKNOWN Unverified 07/30/20 15:18 Active Medications: Current Medications Acetaminophen (Acetaminophen 325 Mg Tablet) 650 mg PO Q6H PRN PRN Reason: Pain, Mild (Pain Scale 1-3) Amlodipine Besylate (Amlodipine Besylate 5 Mg Tablet) 5 mg PO DAILY [facility]; Protocol Dextrose (Dextrose 50 % 25 Gm/50 Ml Syringe) 25 gm IVPUSH Q15M PRN; Protocol PRN Reason: per Hypoglycemia Standing Ord. Docusate Sodium (Docusate Sodium 100 Mg Capsule) 100 mg PO DAILY PRN PRN Reason: Constipation Donepezil HCl (Donepezil Hcl 10 Mg Tablet) 10 mg PO BEDTIME [facility] Glucose (Glucose Gel 15 Gm Gel..Gram.) 15 gm PO Q15M PRN; Protocol PRN Reason: per Hypoglycemia Standing Ord. Insulin Human Lispro (Insulin Lispro 100 Unit/Ml 3 Ml Vial) 0 unit SUBCUT QIDACHS [facility]; Protocol Ondansetron HCl (Ondansetron Hcl 4 Mg/2 Ml Vial) 4 mg IVPUSH Q8H PRN PRN Reason: Nausea and Vomiting Pantoprazole Sodium (Pantoprazole Sodium 40 Mg/10 Ml Vial) 40 mg IVPUSH BID@0630,1630 [facility] Rifaximin (Rifaximin 550 Mg Tablet) 550 mg PO BID [facility] Sodium Chloride (0.9 % Sodium Chloride Flush 3 Ml Syringe) 3 ml IVFLUSH QSHIFT [facility] Last Admin: 12/27/21 00:57 Dose: Not Given Documented by: Home Medications Medication Instructions Recorded Confirmed Last Taken Type amlodipine 5 mg tablet 1 tab PO DAILY 12/26/21 12/26/21 12/26/21 History donepezil 10 mg tablet 1 tab PO BEDTIME 12/26/21 12/26/21 12/25/21 History ferrous sulfate 325 mg (65 mg 1 tab PO DAILY 12/26/21 12/26/21 12/26/21 History iron) tablet (iron) pantoprazole 40 mg tablet,delayed 1 tab PO DAILY 12/26/21 12/26/21 12/26/21 History release rifaximin 550 mg tablet (Xifaxan) 1 tab PO BID 12/26/21 12/26/21 12/26/21 History sitagliptin 100 mg tablet (Januvia) 1 tab PO DAILY 12/26/21 12/26/21 12/26/21 History Physical Exam Vital Signs: Vital Signs: Last Vital Signs Temp 98.2 F 12/27/21 04:52 Pulse 56 12/27/21 04:52 Resp 14 12/27/21 04:52 BP 142/78 H 12/27/21 04:52 Pulse Ox 97 12/27/21 04:52 BMI result Body Mass Index 24.4 EXAM: GENERAL: The patient is well developed and nontoxic. VITAL SIGNS:see workflow HEENT: Nonicteric sclerae, PERRLA, EOMI. Oropharynx clear. Moist mucous membranes. Conjunctivae appear well perfused. No thyroid mass. CHEST: Chest wall is nontender. HEART: Regular rate and rhythm without murmurs. LUNGS: Clear to auscultation bilaterally. ABDOMEN: Soft, positive bowel sounds, nontender, no organomegaly.no flank tenderness GENITAL:not done RECTAL: not done SKIN: No rash, no excessive bruising, petechiae, or purpura. NEUROLOGIC: Cranial nerves II-XII intact without motor/sensory deficit. pych-nml affect MS--nml movement Const: General: cooperative and no acute distress Orientation/consciousness: patient oriented x3 Eyes: General: appearance normal, both eyes and all related structures Pupils: Equal, round and reactive pupils present Cardio: Rate: regular rate Rhythm: regular rhythm GI: Other: No tenderness, rebound or guarding Palpation (GI): Soft to palpation Auscultation: normal bowel sounds Skin: General skin exam: no rashes or lesions noted Neuro: General: patient oriented x3 Cranial nerves: Yes Equal, round and reactive pupils present Cognition (Neuro): normal cognition Extrem: General: Yes normal to inspection and Yes no pedal edema Results Labs CBC & Chem 7: 12/27/21 08:35 12/27/21 06:37 Labs: Short CBC 12/26/21 12/26/21 Range/Units 13:35 21:49 WBC 3.0 L 3.5 L (4.8-10.8) X10*3/uL Hgb 13.4 L 13.5 L (14.0-18.0) g/dl Hct 36.8 L 37.1 L (42.0-52.0) % Plt Count 62 L 63 L (160-400) X10*3/uL BMP 12/26/21 12/27/21 13:35 06:37 Sodium 136 141 Potassium 4.4 4.2 Chloride 105 108 Carbon Dioxide 27 26 BUN 13 11 Creatinine 0.85 0.79 Calcium 8.8 8.5 Liver Function 12/26/21 Range/Units 13:35 Total Bilirubin 2.3 H (0.0-1.0) mg/dL Direct Bilirubin 0.5 (0.0-0.5) mg/dL AST 42 H (5-37) U/L ALT 29 (0-40) U/L Alkaline Phosphatase 94 D (39-117) U/L Albumin 3.4 L (3.5-5.0) g/dL Assessment and Plan (1) Lower gastrointestinal hemorrhage: Status: Acute Plan 1/ Rectal bleeding, with no acute findings on imaging, ddx: hemorrhoidal, colitis, low lying rectal lesions, neoplasia. Prior hx of TIPS makes variceal bleeding very unlikely as portal system would be decompressed, clinically no evidence of TIPS malfunction PLAN: 1/ allow clears today 2/ colonoscopy tomorrow, cont to trend HGB 3/ check hematinics Procedures Date of Service Date of Service: 12/27/21
[2021-12-27 07:51] LABS: Glucose, Whole Blood 115 mg/dL (60-115)
--- NOTE | 2021-12-27 08:08 | HO.PM.IMPN ---
Subjective Subjective Date of Service: 12/27/21 Interval History: Gib Review of Systems Last episode of bleeding yesterday late afternoon Denies any abdominal pain or nausea or vomiting or fever chills Physical Exam Vital Signs: Vital Signs: Last Vital Signs Temp 98.2 F 12/27/21 04:52 Pulse 56 12/27/21 04:52 Resp 14 12/27/21 04:52 BP 142/78 H 12/27/21 04:52 Pulse Ox 97 12/27/21 04:52 BMI result Body Mass Index 24.4 Appearance: Alert.? Oriented X3.? not in distress.? cvs: rrr, [id number] , no murmur res: clear to auscultation ,no rhonchii or wheezing abd: no rebound or guarding ,nt, bs present. ext pulses present , no cyanosis . neuro: axo3 , nonfocal. Objective Data Active Medications Acetaminophen (Acetaminophen 325 Mg Tablet) 650 mg PO Q6H PRN PRN Reason: Pain, Mild (Pain Scale 1-3) Amlodipine Besylate (Amlodipine Besylate 5 Mg Tablet) 5 mg PO DAILY [facility]; Protocol Dextrose (Dextrose 50 % 25 Gm/50 Ml Syringe) 25 gm IVPUSH Q15M PRN; Protocol PRN Reason: per Hypoglycemia Standing Ord. Docusate Sodium (Docusate Sodium 100 Mg Capsule) 100 mg PO DAILY PRN PRN Reason: Constipation Donepezil HCl (Donepezil Hcl 10 Mg Tablet) 10 mg PO BEDTIME [facility] Glucose (Glucose Gel 15 Gm Gel..Gram.) 15 gm PO Q15M PRN; Protocol PRN Reason: per Hypoglycemia Standing Ord. Insulin Human Lispro (Insulin Lispro 100 Unit/Ml 3 Ml Vial) 0 unit SUBCUT QIDACHS [facility]; Protocol Last Admin: 12/27/21 08:02 Dose: Not Given Documented by: JO ANN Non-Admin Reason: No Insulin Coverage Ondansetron HCl (Ondansetron Hcl 4 Mg/2 Ml Vial) 4 mg IVPUSH Q8H PRN PRN Reason: Nausea and Vomiting Pantoprazole Sodium (Pantoprazole Sodium 40 Mg/10 Ml Vial) 40 mg IVPUSH BID@0630,1630 [facility] Rifaximin (Rifaximin 550 Mg Tablet) 550 mg PO BID [facility] Sodium Chloride (0.9 % Sodium Chloride Flush 3 Ml Syringe) 3 ml IVFLUSH QSHIFT [facility] Last Admin: 12/27/21 00:57 Dose: Not Given Documented by: RANI Non-Admin Reason: See Note Labs CBC & Chem 7: 12/27/21 08:35 12/27/21 06:37 Labs: Laboratory Results - last 24 hr 12/26/21 12/26/21 12/26/21 13:35 13:35 13:35 MCV 94.1 MCH 34.3 H MCHC 36.4 H RDW 13.8 Plt Count 62 L MPV 11.0 Immature Gran % (Auto) 0.3 Neut % (Auto) 59.3 Lymph % (Auto) 24.6 [place] % (Auto) 13.1 H Eos % (Auto) 2.4 Baso % (Auto) 0.3 Lymph # (Auto) 0.7 L [place] # (Auto) 0.4 Eos # (Auto) 0.1 Baso # (Auto) 0.0 Abs Immat Gran (auto) 0.01 Absolute Neuts (auto) 1.8 L Absolute Nucleated RBC 0.000 Nucleated RBC % (auto) 0.0 Smear Tech's Comments PT 16.8 H INR 1.5 H Anion Gap 8 L Estim Creat Clear Calc 79.8 Estimated GFR > 60 POC Glucose Random Glucose 258 H D Calcium 8.8 Total Bilirubin 2.3 H Direct Bilirubin 0.5 AST 42 H ALT 29 Alkaline Phosphatase 94 D Total Protein 6.8 Albumin 3.4 L Lipase 46 Stool Occult Blood COVID-19 (MARIA INES) COVID-19 Clin Com 12/26/21 12/26/21 12/27/21 16:51 21:49 01:26 MCV 93.0 MCH 33.8 H MCHC 36.4 H RDW 13.4 Plt Count 63 L MPV 10.1 Immature Gran % (Auto) 0.3 Neut % (Auto) 51.5 Lymph % (Auto) 32.4 [place] % (Auto) 12.3 H Eos % (Auto) 2.6 Baso % (Auto) 0.9 Lymph # (Auto) 1.1 L [place] # (Auto) 0.4 Eos # (Auto) 0.1 Baso # (Auto) 0.0 Abs Immat Gran (auto) 0.01 Absolute Neuts (auto) 1.8 L Absolute Nucleated RBC 0.000 Nucleated RBC % (auto) 0.0 Smear Tech's Comments VERIFIED PT INR Anion Gap Estim Creat Clear Calc Estimated GFR POC Glucose Random Glucose Calcium Total Bilirubin Direct Bilirubin AST ALT Alkaline Phosphatase Total Protein Albumin Lipase Stool Occult Blood POSITIVE COVID-19 ([facility] INES) Negative COVID-19 Clin Com See Note 12/27/21 12/27/21 06:37 07:39 MCV MCH MCHC RDW Plt Count MPV Immature Gran % (Auto) Neut % (Auto) Lymph % (Auto) [place] % (Auto) Eos % (Auto) Baso % (Auto) Lymph # (Auto) [place] # (Auto) Eos # (Auto) Baso # (Auto) Abs Immat Gran (auto) Absolute Neuts (auto) Absolute Nucleated RBC Nucleated RBC % (auto) Smear Tech's Comments PT INR Anion Gap 11 L Estim Creat Clear Calc 85.9 Estimated GFR > 60 POC Glucose 115 Random Glucose 118 H D Calcium 8.5 Total Bilirubin Direct Bilirubin AST ALT Alkaline Phosphatase Total Protein Albumin Lipase Stool Occult Blood COVID-19 ([facility] IN[facility]) COVID-19 Clin Com Assessment and Plan (1) Liver cirrhosis: Status: Acute (2) Lower gastrointestinal hemorrhage: Status: Acute Plan 76-year-old male with past medical history of alcohol abuse, as well as diabetes hypertension who presents to the hospital with complaints of bright red blood per rectum. 1. acute GI bleed- likely lower GI - does not have elevated BUN, no history of heartburn, no history of NSAID use - patient is hemodynamically stable h/h stable on pantoprazole 40 IV b.i.d.given hx of alcohol abuse and liver ds - follow CBC - clear liquid diet 2. hypertension: stightly elevated continue to moniter if needed will adjust home amlodipine. 3. diabetes - hold oral antihyperglycemics - start low-dose sliding scale insulin 4.?has liver cirrhosis and previous TIPS procedure?: still elevated bilirubin 2.3 range , elevated ast hypoalbuminemia mild coagulapthy will give albumin , encouraged for po intake once has colonscopy , may need vitamin k if still bleeding moniter liver function and electrolytes. DVT prophylaxis: SCDs Quality Stroke Does the patient have a stroke diagnosis?: No VTE Prior VTE?: No VTE Risk Level:: Medical - moderate - high VTE Device Contraindication: N/A - Device Ordered VTE Drug Contraindication: Treatment Not Indicated
[2021-12-27 08:47] LABS: Hematocrit 43.1 % (42.0-52.0); Hemoglobin 15.5 g/dl (14.0-18.0); Mean Corpuscular Hemoglobin 33.7 pg (27.0-33.0); Mean Corpuscular Volume 93.7 fL (80.0-98.0); Mean Platelet Volume 10.1 fL (9.4-12.4); Platelet Count 82 X10*3/uL (160-400); Red Cell Distribution Width 13.7 % (11.0-16.0); White Blood Count 3.9 X10*3/uL (4.8-10.8)
[2021-12-27 08:49] LABS: INTERNATIONAL NORM RATIO 1.4 (0.9-1.1); Prothrombin Time 15.9 SEC (9.9-13.0)
[2021-12-27] MEDS: rifAXIMin 550 MG TABLET PO ×2 (09:00→21:29)
[2021-12-27] MEDS: amLODIPine Besylate 5 MG TABLET PO (09:00)
--- NOTE | 2021-12-27 09:48 | MHC.CM.PN ---
PT REPORTS HE LIVES ALONE AND IS FULLY INDEPENDENT PT DENIES USING ANY DME AND HAS NO HOME OR COMMUNITY SERVICES PT REPORTS HE HAS A HCP NAMING HIS DAUGHTER BETH HIS AGENT PT CONFIRMS HIS PCP IS [facility] SORIANO IMM DELIVERED, ORIGINAL AT BEDSIDE, COPY SENT TO [facility] CURRENT DC PLAN IS HOME WITH NO SERVICES PT TO ARRANGE TRANSPORTATION
[2021-12-27 12:55] LABS: Glucose, Whole Blood 115 mg/dL (60-115)
[2021-12-27 16:00] VITALS: BP 132/61; PULSE 53; RESP 18; TEMP 36.7; O2SAT 98
[2021-12-27 17:36] LABS: Glucose, Whole Blood 99 mg/dL (60-115)
[2021-12-27] MEDS: Pantoprazole Sodium 40 MG/10 ML VIAL IVPUSH (18:15)
[2021-12-27] MEDS: 0.9 % Sodium Chloride Flush 3 ML SYRINGE IVFLUSH ×2 (18:16→19:46)
[2021-12-27] MEDS: Albumin Human 25 % 50 ML 100 ML IV (19:44)
[2021-12-27 20:00] VITALS: BP 144/79; PULSE 56; RESP 15; TEMP 37.1; O2SAT 98
[2021-12-27] MEDS: Donepezil HCl 10 MG TABLET PO (21:29)
[2021-12-27] MEDS: PEG 3350/Na Sulf,Bicarb,Cl/KCL 4,000 ML SOLN.RECON 4000 ML PO (21:30)
[2021-12-27 22:20] LABS: Glucose, Whole Blood 128 mg/dL (60-115)
[2021-12-28] VITALS (7 sets, daily range): BP systolic 121–159; BP diastolic 56–69; PULSE 56–65; RESP 14–18; TEMP 36.1–37; O2SAT 93–100
[2021-12-28] MEDS: Pantoprazole Sodium 40 MG/10 ML VIAL IVPUSH (05:55)
[2021-12-28 07:57] LABS: Glucose, Whole Blood 82 mg/dL (60-115)
[2021-12-28] MEDS: 0.9 % Sodium Chloride Flush 3 ML SYRINGE IVFLUSH (08:56)
[2021-12-28] MEDS: amLODIPine Besylate 5 MG TABLET PO (08:56)
[2021-12-28] MEDS: rifAXIMin 550 MG TABLET PO (08:56)
--- NOTE | 2021-12-28 10:27 | HO.PM.IMPN ---
Subjective Subjective Date of Service: 12/28/21 Interval History: F/u rectal bleed, no further bleed Review of Systems no abdominal pain, no rectal bleed, no sob, no dizziness Physical Exam Vital Signs: Vital Signs: Last Vital Signs Temp 97.9 F 12/28/21 07:31 Pulse 63 12/28/21 07:31 Resp 18 12/28/21 07:31 BP 122/60 12/28/21 07:31 Pulse Ox 93 12/28/21 07:31 BMI result Body Mass Index 24.4 Const: Other: General: AO X 3, no acute distress Resp: CTA bilateral CVS: S1,S2,RRR GI: +BS, NT, no distention, rectal exam defered Skin: No rash Neuro: motor grossly intact Psych: appropriate affect Objective Data Active Medications Acetaminophen (Acetaminophen 325 Mg Tablet) 650 mg PO Q6H PRN PRN Reason: Pain, Mild (Pain Scale 1-3) Amlodipine Besylate (Amlodipine Besylate 5 Mg Tablet) 5 mg PO DAILY [facility]; Protocol Last Admin: 12/28/21 08:56 Dose: 5 mg Documented by: WALT Dextrose (Dextrose 50 % 25 Gm/50 Ml Syringe) 25 gm IVPUSH Q15M PRN; Protocol PRN Reason: per Hypoglycemia Standing Ord. Docusate Sodium (Docusate Sodium 100 Mg Capsule) 100 mg PO DAILY PRN PRN Reason: Constipation Donepezil HCl (Donepezil Hcl 10 Mg Tablet) 10 mg PO BEDTIME [facility] Last Admin: 12/27/21 21:29 Dose: 10 mg Documented by: OMAR Glucose (Glucose Gel 15 Gm Gel..Gram.) 15 gm PO Q15M PRN; Protocol PRN Reason: per Hypoglycemia Standing Ord. Insulin Human Lispro (Insulin Lispro 100 Unit/Ml 3 Ml Vial) 0 unit SUBCUT QIDACHS [facility]; Protocol Last Admin: 12/28/21 08:04 Dose: Not Given Documented by: WALT Non-Admin Reason: No Insulin Coverage Ondansetron HCl (Ondansetron Hcl 4 Mg/2 Ml Vial) 4 mg IVPUSH Q8H PRN PRN Reason: Nausea and Vomiting Pantoprazole Sodium (Pantoprazole Sodium 40 Mg/10 Ml Vial) 40 mg IVPUSH BID@0630,1630 [facility] Last Admin: 12/28/21 05:55 Dose: 40 mg Documented by: OMAR Rifaximin (Rifaximin 550 Mg Tablet) 550 mg PO BID [facility] Last Admin: 12/28/21 08:56 Dose: 550 mg Documented by: WALT Sodium Chloride (0.9 % Sodium Chloride Flush 3 Ml Syringe) 3 ml IVFLUSH QSHIFT [facility] Last Admin: 12/28/21 08:56 Dose: 3 ml Documented by: WALT Labs CBC & Chem 7: 12/27/21 08:35 12/27/21 06:37 Labs: Laboratory Results - last 24 hr 12/27/21 12/27/21 12/27/21 12:52 17:32 21:55 POC Glucose 115 99 128 H 12/28/21 07:34 POC Glucose 82 Assessment and Plan (1) Lower gastrointestinal hemorrhage: Status: Acute Plan 76-year-old male with past medical history of alcohol abuse, as well as diabetes hypertension who presents to the hospital with complaints of bright red blood per rectum. 1. Rectal bleed.. no significant anemia, nature unclear -IV PPI -Colonoscopy today 2. Hypertension: Norvasc 3. diabetes--SSI - hold oral antihyperglycemics 4.?has liver cirrhosis and previous TIPS procedure. stable. to avoid alcohol DVT prophylaxis: SCDs Possible dc after colonoscopy Quality Stroke Does the patient have a stroke diagnosis?: No VTE Prior VTE?: No VTE Risk Level:: Medical - moderate - high VTE Device Contraindication: N/A - Device Ordered VTE Drug Contraindication: Treatment Not Indicated
[2021-12-28 10:54] LABS: Hematocrit 39.6 % (42.0-52.0); Hemoglobin 14.5 g/dl (14.0-18.0); Mean Corpuscular HGB Conc 36.6 g/dl (31.0-36.0); Mean Corpuscular Hemoglobin 33.9 pg (27.0-33.0); Mean Corpuscular Volume 92.5 fL (80.0-98.0); Mean Platelet Volume 9.9 fL (9.4-12.4); Red Blood Count 4.28 X10*6/uL (4.60-5.80); Red Cell Distribution Width 13.6 % (11.0-16.0); White Blood Count 3.3 X10*3/uL (4.8-10.8)
[2021-12-28 10:55] LABS: Platelet Count 76 X10*3/uL (160-400)
[2021-12-28 11:03] LABS: Alanine Aminotransferase 30 U/L (0-40); Albumin Level 3.6 g/dL (3.5-5.0); Alkaline Phosphatase 81 U/L (39-117); Anion Gap 10 (12-20); Aspartate Amino Transferase 51 U/L (5-37); Bilirubin Direct 0.6 mg/dL (0.0-0.5); Bilirubin Total 4.5 mg/dL (0.0-1.0); Blood Urea Nitrogen 13 mg/dL (9-16); Carbon Dioxide 27 mmol/L (22-29); Chloride 106 mmol/L (96-108); Creatinine Clr Calc Pharmacy 82.8; Estimated Glomerular Filt Rate > 60; Glucose Random 129 mg/dL (60-115); Potassium 4.1 mmol/L (3.3-5.1); Sodium 139 mmol/L (135-145)
[2021-12-28 11:10] LABS: Glucose, Whole Blood 118 mg/dL (60-115)
--- NOTE | 2021-12-28 12:14 | P.CONAN_ITS ---
[facility] Active Problems Active Problems: All Active Problems (Updated 12/27/21 @ 14:01 by Pascale Chavez MD) Liver cirrhosis (Acute) Lower gastrointestinal hemorrhage (Acute) Past Medical History Medical History Alcohol abuse Diabetes 1.5, managed as type 2 Hypertension Family History Family History Father Cancer Mother DVT (deep venous thrombosis) Family history of problems with anesthesia: No Surgical History Surgical History S/P TIPS (transjugular intrahepatic portosystemic shunt) History of Problems with Anesthesia: No Social History Social History Household Members: None Housing: Apartment Do you presently have visiting nurse or other home services: No Alcohol intake: never Patient Tobacco Use Status: Never used Tobacco service: No Current occupational status: retired [employer] Allergies Allergy/AdvReac Type Severity Reaction Status Date / Time Penicillins [PENICILLINS] Allergy Unknown UNKNOWN Verified 12/27/21 17:28 Active Medications: Current Medications Acetaminophen (Acetaminophen 325 Mg Tablet) 650 mg PO Q6H PRN PRN Reason: Pain, Mild (Pain Scale 1-3) Amlodipine Besylate (Amlodipine Besylate 5 Mg Tablet) 5 mg PO DAILY [facility]; Protocol Last Admin: 12/28/21 08:56 Dose: 5 mg Documented by: Dextrose (Dextrose 50 % 25 Gm/50 Ml Syringe) 25 gm IVPUSH Q15M PRN; Protocol PRN Reason: per Hypoglycemia Standing Ord. Docusate Sodium (Docusate Sodium 100 Mg Capsule) 100 mg PO DAILY PRN PRN Reason: Constipation Donepezil HCl (Donepezil Hcl 10 Mg Tablet) 10 mg PO BEDTIME [facility] Last Admin: 12/27/21 21:29 Dose: 10 mg Documented by: Glucose (Glucose Gel 15 Gm Gel..Gram.) 15 gm PO Q15M PRN; Protocol PRN Reason: per Hypoglycemia Standing Ord. Insulin Human Lispro (Insulin Lispro 100 Unit/Ml 3 Ml Vial) 0 unit SUBCUT QIDACHS [facility]; Protocol Last Admin: 12/28/21 11:39 Dose: Not Given Documented by: Ondansetron HCl (Ondansetron Hcl 4 Mg/2 Ml Vial) 4 mg IVPUSH Q8H PRN PRN Reason: Nausea and Vomiting Pantoprazole Sodium (Pantoprazole Sodium 40 Mg/10 Ml Vial) 40 mg IVPUSH BID@0630,1630 [facility] Last Admin: 12/28/21 05:55 Dose: 40 mg Documented by: Rifaximin (Rifaximin 550 Mg Tablet) 550 mg PO BID [facility] Last Admin: 12/28/21 08:56 Dose: 550 mg Documented by: Sodium Chloride (0.9 % Sodium Chloride Flush 3 Ml Syringe) 3 ml IVFLUSH QSHIFT [facility] Last Admin: 12/28/21 08:56 Dose: 3 ml Documented by: Home Medications Medication Instructions Recorded Confirmed Last Taken Type amlodipine 5 mg tablet 1 tab PO DAILY 12/26/21 12/26/21 12/26/21 History donepezil 10 mg tablet 1 tab PO BEDTIME 12/26/21 12/26/21 12/25/21 History ferrous sulfate 325 mg (65 mg 1 tab PO DAILY 12/26/21 12/26/21 12/26/21 History iron) tablet (iron) pantoprazole 40 mg tablet,delayed 1 tab PO DAILY 12/26/21 12/26/21 12/26/21 History release rifaximin 550 mg tablet (Xifaxan) 1 tab PO BID 12/26/21 12/26/21 12/26/21 History sitagliptin 100 mg tablet (Januvia) 1 tab PO DAILY 12/26/21 12/26/21 12/26/21 History Exam Exam Date and Time: December 28, 2021 1214 Height,Weight and Vital Signs: Height 6 ft Weight 81.647 kg Last Vital Signs Temp 98.6 F 12/28/21 11:46 Pulse 61 12/28/21 11:46 Resp 18 12/28/21 11:46 BP 132/62 12/28/21 11:46 Pulse Ox 99 12/28/21 11:46 Pertinent Lab Results Pertinent Lab Results: Laboratory Tests 12/26/21 12/26/21 12/26/21 13:35 13:35 13:35 WBC 3.0 L RBC 3.91 L Hgb 13.4 L Hct 36.8 L MCV 94.1 MCH 34.3 H MCHC 36.4 H RDW 13.8 Plt Count 62 L MPV 11.0 Immature Gran % (Auto) 0.3 Neut % (Auto) 59.3 Lymph % (Auto) 24.6 [place] % (Auto) 13.1 H Eos % (Auto) 2.4 Baso % (Auto) 0.3 Lymph # (Auto) 0.7 L [place] # (Auto) 0.4 Eos # (Auto) 0.1 Baso # (Auto) 0.0 Abs Immat Gran (auto) 0.01 Absolute Neuts (auto) 1.8 L Absolute Nucleated RBC 0.000 Nucleated RBC % (auto) 0.0 Smear Tech's Comments PT 16.8 H INR 1.5 H Sodium 136 Potassium 4.4 Chloride 105 Carbon Dioxide 27 Anion Gap 8 L BUN 13 Creatinine 0.85 Estim Creat Clear Calc 79.8 Estimated GFR > 60 POC Glucose Random Glucose 258 H D Calcium 8.8 Total Bilirubin 2.3 H Direct Bilirubin 0.5 AST 42 H ALT 29 Alkaline Phosphatase 94 D Total Protein 6.8 Albumin 3.4 L Lipase 46 Stool Occult Blood COVID-19 (MARIA INES) [employer] 12/26/21 12/26/21 12/27/21 16:51 21:49 01:26 WBC 3.5 L RBC 3.99 L Hgb 13.5 L Hct 37.1 L MCV 93.0 MCH 33.8 H MCHC 36.4 H RDW 13.4 Plt Count 63 L MPV 10.1 Immature Gran % (Auto) 0.3 Neut % (Auto) 51.5 Lymph % (Auto) 32.4 [place] % (Auto) 12.3 H Eos % (Auto) 2.6 Baso % (Auto) 0.9 Lymph # (Auto) 1.1 L [place] # (Auto) 0.4 Eos # (Auto) 0.1 Baso # (Auto) 0.0 Abs Immat Gran (auto) 0.01 Absolute Neuts (auto) 1.8 L Absolute Nucleated RBC 0.000 Nucleated RBC % (auto) 0.0 Smear Tech's Comments VERIFIED PT INR Sodium Potassium Chloride Carbon Dioxide Anion Gap BUN Creatinine Estim Creat Clear Calc Estimated GFR POC Glucose Random Glucose Calcium Total Bilirubin Direct Bilirubin AST ALT Alkaline Phosphatase Total Protein Albumin Lipase Stool Occult Blood POSITIVE COVID-19 (MARIA INES) Negative COVID-19 Clin Com See Note 12/27/21 12/27/21 12/27/21 06:37 07:39 08:35 WBC 3.9 L RBC 4.60 Hgb 15.5 Hct 43.1 MCV 93.7 MCH 33.7 H MCHC 36.0 RDW 13.7 Plt Count 82 L D MPV 10.1 Immature Gran % (Auto) Neut % (Auto) Lymph % (Auto) [place] % (Auto) Eos % (Auto) Baso % (Auto) Lymph # (Auto) [place] # (Auto) Eos # (Auto) Baso # (Auto) Abs Immat Gran (auto) Absolute Neuts (auto) Absolute Nucleated RBC 0.000 Nucleated RBC % (auto) 0.0 Smear Tech's Comments PT INR Sodium 141 Potassium 4.2 Chloride 108 Carbon Dioxide 26 Anion Gap 11 L BUN 11 Creatinine 0.79 Estim Creat Clear Calc 85.9 Estimated GFR > 60 POC Glucose 115 Random Glucose 118 H D Calcium 8.5 Total Bilirubin Direct Bilirubin AST ALT Alkaline Phosphatase Total Protein Albumin Lipase Stool Occult Blood COVID-19 (MARIA INES) [employer] 12/27/21 12/27/21 12/27/21 08:35 12:52 17:32 WBC RBC Hgb Hct MCV MCH MCHC RDW Plt Count MPV Immature Gran % (Auto) Neut % (Auto) Lymph % (Auto) [place] % (Auto) Eos % (Auto) Baso % (Auto) Lymph # (Auto) [place] # (Auto) Eos # (Auto) Baso # (Auto) Abs Immat Gran (auto) Absolute Neuts (auto) Absolute Nucleated RBC Nucleated RBC % (auto) Smear Tech's Comments PT 15.9 H INR 1.4 H Sodium Potassium Chloride Carbon Dioxide Anion Gap BUN Creatinine Estim Creat Clear Calc Estimated GFR POC Glucose 115 99 Random Glucose Calcium Total Bilirubin Direct Bilirubin AST ALT Alkaline Phosphatase Total Protein Albumin Lipase Stool Occult Blood COVID-19 (MARIA INES) [employer] 12/27/21 12/28/21 12/28/21 21:55 07:34 10:28 WBC 3.3 L RBC 4.28 L Hgb 14.5 Hct 39.6 L MCV 92.5 MCH 33.9 H MCHC 36.6 H RDW 13.6 Plt Count 76 L MPV 9.9 Immature Gran % (Auto) Neut % (Auto) Lymph % (Auto) [place] % (Auto) Eos % (Auto) Baso % (Auto) Lymph # (Auto) [place] # (Auto) Eos # (Auto) Baso # (Auto) Abs Immat Gran (auto) Absolute Neuts (auto) Absolute Nucleated RBC 0.000 Nucleated RBC % (auto) 0.0 Smear Tech's Comments PT INR Sodium Potassium Chloride Carbon Dioxide Anion Gap BUN Creatinine Estim Creat Clear Calc Estimated GFR POC Glucose 128 H 82 Random Glucose Calcium Total Bilirubin Direct Bilirubin AST ALT Alkaline Phosphatase Total Protein Albumin Lipase Stool Occult Blood COVID-19 (MARIA INES) COVID-19 [facility] 12/28/21 12/28/21 10:28 10:57 WBC RBC Hgb Hct MCV MCH MCHC RDW Plt Count MPV Immature Gran % (Auto) Neut % (Auto) Lymph % (Auto) [place] % (Auto) Eos % (Auto) Baso % (Auto) Lymph # (Auto) [place] # (Auto) Eos # (Auto) Baso # (Auto) Abs Immat Gran (auto) Absolute Neuts (auto) Absolute Nucleated RBC Nucleated RBC % (auto) Smear Tech's Comments PT INR Sodium 139 Potassium 4.1 Chloride 106 Carbon Dioxide 27 Anion Gap 10 L BUN 13 Creatinine 0.82 Estim Creat Clear Calc 82.8 Estimated GFR > 60 POC Glucose 118 H Random Glucose 129 H Calcium 9.0 Total Bilirubin 4.5 H Direct Bilirubin 0.6 H AST 51 H ALT 30 Alkaline Phosphatase 81 Total Protein 7.0 Albumin 3.6 Lipase Stool Occult Blood COVID-19 (MARIA INES) COVID-19 EpiEP Com Airway Mallampati Class: I TM Dist: >3cm Neck ROM: Full Denture: Upper and Lower Assessment and Plan Assessment Anesthesia Assessment: Anesthesia Plan Discussed and Chart Reviewed Final Anesthetic Review Family History of Problems with Anesthesia: No History of Problems with Anesthesia: No NPO: Yes ASA Class: III Final Preanesthetic Review: No Changes in Pt Med Stat, Meds/Allgs Chart Reviewed, Consent Obtained/Reviewed and Anes Risks/Benef Reviewed Patient Risk: Intermediate Procedure Risk: Low Anesthetic Plan Anesthetic Plan: MAC: Disposition: Standard PACU
[2021-12-28 12:16] LABS: Glucose, Whole Blood 111 mg/dL (60-115)
--- NOTE | 2021-12-28 12:30 | MHC.SHP ---
Pre-Procedural Eval Section A Date of Service: 12/28/21 The patient is an INPATIENT: Yes The History & Physical has been completed within 30 days and I have reviewed it.: Yes Section B Chief Complaint: GI Bleed Allergies: Allergies Allergy/AdvReac Type Severity Reaction Status Date / Time Penicillins [PENICILLINS] Allergy Unknown UNKNOWN Verified 12/27/21 17:28 Plan I have reviewed the history and physical and performed a pertinent physical examination on my patient. No changes have occurred unless specified.
--- NOTE | 2021-12-28 12:30 | PM.OP ---
Brief Operative Note Date of Service: 12/28/21 Pre-op diagnosis: rectal bleeding Post-op diagnosis: same Procedure: see op note Surgeon: Ladan Adrian MD Anesthesia: MAC Was an Painter Chassis used for this Procedure?: No Estimated blood loss (mL): 0 Condition: stable Disposition: PACU
--- NOTE | 2021-12-28 12:31 | P.OP_ITS ---
Operative Note Operative Note Date of Service: 12/28/21 Narrative: Operative Information Procedure Description: Colonoscopy COLONOSCOPY Instrument: Olympus variable stiffness adult scope 190L Colonoscopy Monitoring: Vital signs and clinical assessment, continuous EKG monitoring, Pulse oximetry, Carbon Dioxide monitoring and blood pressure monitoring were done throughout the procedure. Colon withdrawal time was 13 minutes. Procedure: The patient was placed in the left lateral decubitis position and pre-procedure medications were administered. After a digital rectal examination of the ano-rectum, the video colonoscope was inserted into the rectum and advanced through the colon to the cecum/TI. The colonoscope was slowly withdrawn in a retrograde panoramic fashion and the colon mucosa was carefully examined including a retroflexed view of the rectum. Findings and interventions are described below. Procedure Difficulty: easy Findings: Terminal Ileum-normal Cecum: diminutive polyp 3-4 mm removed with forceps Ascending Colon: normal Transverse Colon -normal Descending Colon:normal Sigmoid Colon: normal Rectum: Retroflexion with moderate sized internal hemorrhoids, grade I Anorectum - normal Colon preparation: [place] Bowel Preparation Scale Right colon; 2 Transverse colon: 2 Left colon; 2 (0 = Unprepared colon segment with mucosa not seen due to solid stool that cannot be cleared. 1 = Portion of mucosa of the colon segment seen, but other areas of the colon segment not well seen due to staining, residual stool and/or opaque liquid. 2 = Minor amount of residual staining, small fragments of stool and/or opaque liquid, but mucosa of colon segment seen well. 3 = Entire mucosa of colon segment seen well with no residual staining, small fragments of stool or opaque liquid) Impression and Post Procedure Diagnosis: polyp internal hemorrhoids Plan: High fiber diet leaflet Avoid straining at stool, epsom salts and sitz bath, anusol supps or cream Repeat Colonoscopy in 5 years if adenoma and health allows otherwise no further screening colonoscopy unless clinically indicated ok to go home Above findings were reviewed with the patient and relevant handouts were provided if indicated.
--- NOTE | 2021-12-28 15:47 | MHC.CM.PN ---
PATIENT IS DISCHARGED HOME - SELF CARE RN AWARE OF PLAN.
--- NOTE | 2021-12-28 16:02 | PM.DS ---
DS: Providers Provider Date of Service: 12/28/21 Date of admission: 12/26/21 20:33 Primary care physician: Ramos Gibson MD Consults: 12/26/21 20:33 Consult to Gastroenterology Routine Consulting Provider: Ladan Adrian Reason for consultation: GI bleed Has provider been notified: No DS: Diagnosis Discharge Diagnosis (1) Lower gastrointestinal hemorrhage: Status: Acute DS: Summary Hospital Course Hospital Course: Chief Complaint: bleeding per rectum This is a 76-year-old male with past medical history of alcohol abuse with history of liver cirrhosis and previous TIPS procedure and diabetes presents to the hospital with complaints of bright red blood per rectum.? Patient reports that it occurred today, about 2-3 episodes,? He has also had diarrhea for the past 4 days following every meal but today turned bright red blood. ? He denies having any abdominal pain, no nausea no vomiting, no hematemesis or hemoptysis.? He reports that he has also had black stools in the past.? He has had a colonoscopy in [place] in 2016/2017 which was normal.? He denies taking any NSAIDs.? Patient has a history of alcohol abuse but has not had any drink for years.? He denies having any history of heartburn or gastric ulcers.? He denies any chest pain, no shortness of breath, no urinary symptoms.? No lower extremity edema.? No headache, change in vision, no dizziness, no palpitations. On arrival to the ED patient hemodynamically stable with slightly elevated blood pressure otherwise no significant abnormality Labs are significant for WBC count 3.5 which is around his baseline, hemoglobin 13.5, hematocrit of 36.8, PT of 16.8, INR of 1.5, glucose of 250, bilirubin of 2.3 which is chronically elevated, AST of 42, COVID-19 negative, stool blood occult positive.? 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 Mild heterogeneous liver with evidence of previous tips procedure.? No ascites. Patient will be admitted for further management Hospital course: Patient was observed, Hemoglobin and hematocrit did not drop. He had colonoscopy with the following finding and recommendations by Dr. Adrian Finding: polyp internal hemorrhoids Plan: High fiber diet leaflet Avoid straining at stool, epsom salts and sitz bath, anusol supps or cream Repeat Colonoscopy in 5 years if adenoma and health allows otherwise no further screening colonoscopy unless clinically indicated Time Spent with Patient Time attestation: Total time spent providing and/or coordinating discharge services: Discharge coordination time: Greater than 30 minutes Quality: Stroke Does the patient have a stroke diagnosis?: No Physical Exam Vital Signs: Vital Signs: Last Vital Signs Temp 97.8 F 12/28/21 15:27 Pulse 61 12/28/21 15:27 Resp 15 12/28/21 15:27 BP 134/60 12/28/21 15:27 Pulse Ox 95 12/28/21 15:27 BMI result Body Mass Index 24.4 DS: Data Data Completed and Pending Pending studies at discharge: Pending at discharge 12/28/21 12:57 Surgical [PTH] Routine Labs on day of discharge: Laboratory Results - last 24 hr 12/27/21 12/27/21 12/28/21 17:32 21:55 07:34 WBC RBC Hgb Hct MCV MCH MCHC RDW Plt Count MPV Absolute Nucleated RBC Nucleated RBC % (auto) Sodium Potassium Chloride Carbon Dioxide Anion Gap BUN Creatinine Estim Creat Clear Calc Estimated GFR POC Glucose 99 128 H 82 Random Glucose Calcium Total Bilirubin Direct Bilirubin AST ALT Alkaline Phosphatase Total Protein Albumin 12/28/21 12/28/21 12/28/21 10:28 10:28 10:57 WBC 3.3 L RBC 4.28 L Hgb 14.5 Hct 39.6 L MCV 92.5 MCH 33.9 H MCHC 36.6 H RDW 13.6 Plt Count 76 L MPV 9.9 Absolute Nucleated RBC 0.000 Nucleated RBC % (auto) 0.0 Sodium 139 Potassium 4.1 Chloride 106 Carbon Dioxide 27 Anion Gap 10 L BUN 13 Creatinine 0.82 Estim Creat Clear Calc 82.8 Estimated GFR > 60 POC Glucose 118 H Random Glucose 129 H Calcium 9.0 Total Bilirubin 4.5 H Direct Bilirubin 0.6 H AST 51 H ALT 30 Alkaline Phosphatase 81 Total Protein 7.0 Albumin 3.6 12/28/21 11:51 WBC RBC Hgb Hct MCV MCH MCHC RDW Plt Count MPV Absolute Nucleated RBC Nucleated RBC % (auto) Sodium Potassium Chloride Carbon Dioxide Anion Gap BUN Creatinine Estim Creat Clear Calc Estimated GFR POC Glucose 111 Random Glucose Calcium Total Bilirubin Direct Bilirubin AST ALT Alkaline Phosphatase Total Protein Albumin Discharge Plan Discharge Anticipated Discharge Date/Time: 12/28/21 15:31 Patient Disposition: Home, Self-Care Discharge Diagnosis: Hemorrhoid Referrals: Ramos Gibson MD [Primary Care Provider] - 1 Week Discharge Medications: Continued donepezil 10 mg tablet 1 tab PO BEDTIME 0RF amlodipine 5 mg tablet 1 tab PO DAILY 0RF pantoprazole 40 mg tablet,delayed release (DR/EC) 1 tab PO DAILY 0RF ferrous sulfate [iron] 325 mg (65 mg iron) tablet 1 tab PO DAILY 0RF Januvia 100 mg tablet 1 tab PO DAILY 0RF Xifaxan 550 mg tablet 1 tab PO BID 0RF Discharge Orders: Discharge Order (Routine); Ordered 12/28/21 Ordered By: Kai Diaz Diet: advance to usual diet Activity on Discharge: As tolerated Stand Alone Forms: Patient Portal Discharge page Care Plan Goals: resolved bleeding issues Health Concerns: hemmorhoid Plan of Treatment: High fiber diet leaflet Avoid straining at stool, epsom salts and sitz bath, anusol supps or cream (Over the counter) Repeat Colonoscopy in 5 years if adenoma and health allows otherwise no further screening colonoscopy unless clinically indicated Assessment: as above Discharge Date/Time: 12/28/21 16:46
== END 2021-12-28 16:46 | disposition home or self-care (01) | DRG 378 ==
LOC: HO.ED 19:44 → HO.EDOVER 21:33 → HO.S3 12-27 14:38
PROVIDERS: Internal Medicine; Internal Medicine Gastroenterology; Admitting Provider Internal Medicine; Emergency Provider Emergency Medicine; PCP Internal Medicine; Visit Provider Internal Medicine
PROC: 0DJD8ZZ Inspection of Lower Intestinal Tract, Via Natural or Artificial Opening Endoscopic (ICD-10-PCS; CPT 45378; principal; 2021-12-28 12:00)
DX: K92.2 Gastrointestinal hemorrhage, unspecified (principal); D68.9 Coagulation defect, unspecified; I10 Essential (primary) hypertension; F10.11 Alcohol abuse, in remission; K74.60 Unspecified cirrhosis of liver; K64.0 First degree hemorrhoids; D12.0 Benign neoplasm of cecum; E11.9 Type 2 diabetes mellitus without complications; Z20.822 Contact with and (suspected) exposure to COVID-19; Z88.0 Allergy status to penicillin; Z79.899 Other long term (current) drug therapy
CPT/HCPCS: 36415; 74176; 80048; 80076; 82272; 82947; 83690; 85025; 85027; 85610; 87635; 88305; 99285; P9047

== ENCOUNTER → 2022-01-18 10:26 | Outpatient (REF) | payer MEDICARE, SELFPAY ==
--- NOTE | 2022-01-18 10:31 | CA_ITS ---
Transthoracic Echocardiogram Patient (Last, First, Middle): Bryon Rangel S Gender: Male Date of : 1945 Age: 76 Procedure Date: 01/18/2022 Procedure Type: Transthoracic Echocardiogram Location: OP Height: 182.88 cm Weight: 81.65 kg BSA: 2.04 m2 Heart Rate: bpm BP: 124 / 58 mmHg Pace Analyst: HAIDER Referring MD: Ramos Gibson MD Geophysical Drafter: Kevin Wyatt MD Symptoms: R01.1 HEART MURMUR Study Quality: Fair ECG Rhythm: Sinus Conclusions: - 1. Normal LV systolic function 2. Early aortic stenosis 3. Normal RVSP 4. No pericardial effusion Findings Left Ventricle Normal left ventricular size, thickness, and systolic function. The visually estimated ejection fraction is between 55-60%. Spectral Doppler is indicative of a normal filling pattern. Right Ventricle Normal right ventricular cavity size and systolic function. Atria The left atrium is likely dilated. There is lipomatous hypertrophy of the interatrial septum. There is no evidence of interatrial shunt. The right atrium is normal in size. Aortic Valve There is moderate calcification of the aortic valve. The peak aortic gradient is 22 mmHg.The mean gradient is 12 mmHg. There is no aortic valve regurgitation. Mean gradient across the valve is elevated suggestive of early aortic stenosis Mitral Valve There is mild anterior and moderate posterior mitral leaflet thickening. There is moderate mitral annular calcification. There is mild mitral valve regurgitation. There is no mitral valve stenosis. Pulmonic Valve The pulmonic valve was not well visualized. Tricuspid Valve Likely normal tricuspid valve structure and function. There is mild tricuspid valve regurgitation. The right ventricular systolic pressure is normal. The right ventricular systolic pressure is 32 mmHg. Normal right atrial pressure. There is no evidence of pulmonary hypertension. Great Vessels All visible segments of the aorta are normal in size. The pulmonary artery was not well visualized. Small plaque is seen in the ascending aorta. Venous The inferior vena cava is normal in size and collapses greater than 50% with inspiration. Pericardium/Pleural There is no evidence of pericardial effusion. Prior Study Comparison No significant change compared to prior study dated: 10/14/2017. Measurements 2D Linear Measurements IVSd: 0.96 0.6-0.9/0.6-1.0 cm LVIDd: 5.26 3.9-5.3/4.2-5.9 cm LVIDd Index: 2.58 2.4-3.2/2.2-3.1 cm/m2 LVIDs: 3.51 2.0-3.6 cm LVPWd: 1.05 0.7-1.1 cm LA Diam: 3.80 2.7-3.8/3.0-4.0 cm LAIDs Index: 1.86 1.5-2.3 cm/m2 LV Mass: 247.43 67-162/88-224 g LV Mass Index: 121.29 43-95/49-115 g/m2 LVOT Diam: 2.10 3.0+(-)1.3 cm 2D Systolic Function EF 4C: 58.10 >55% EF 2C: 59.80 >55% EF BiP: 58.20 >55% Mitral Valve MV Pk E: 0.81 MV PK A: 0.50 MV Decel Time: 239.00 E/A: 1.60 E'Lateral: 10.90 E'Medial: 7.72 E/E' Med: 10.40 E/E' Lat: 7.40 PHT: 70.00 MVA PHT: 3.14 Decel Cherry: 3.37 Aortic Valve AoV Pk Jose Antonio: 2.32 AoV Mn Jose Antonio: 1.61 AoV VTI: 0.49 AoV Pk Grad: 22.00 Aov Mn Grad: 12.00 JACOB Cont.VTI: 2.26 LVOT LVOT Pk Jose Antonio: 1.34 LVOT Mn Jose Antonio: 0.86 LVOT VTI: 0.32 LVOT Pk Grad: 7.00 LVOT Mn Grad: 4.00 LVOT Diam: 2.10 LVOT Area: 3.46 Diastolic Function MV Pk E: 0.81 MV Pk A: 0.50 E/A: 1.60 E'Medial: 7.72 E/E' Med: 10.40 E' Laterial: 10.90 E/E' Lat: 7.40 Right Ventricle TAPSE (mm): 2.82 TVS' Jose Antonio: 18.10 Tricuspid Valve TR Pk Jose Antonio: 2.69 TR Pk Grad: 29.00 RA Press: 3.00 RVSP: 32.00 Great Vessels Aorta Sinus of Valsalva: 2.88 2.0-3.5 cm Ao Asc: 3.30 2.1-3.4 cm Updated in Other Vendor System with Status of Final Kevin Wyatt MD electronically signed on 01/18/2022 8:59:08 PM with status of Final
== END ==
LOC: HO.CARD 10:26
PROVIDERS: Visit Provider Internal Medicine
DX: R01.1 Cardiac murmur, unspecified (principal)
CPT/HCPCS: 93306

== ENCOUNTER 2022-03-30 23:53 | Emergency (ER) | payer MEDICARE, SELFPAY ==
--- NOTE | ~2022-03-30 | XR_ITS ---
EXAMINATION: XR HIP, RIGHT CLINICAL INFORMATION: Pain COMPARISON: None TECHNIQUE: 2 views of pelvis with 2 additional views right hip. FINDINGS: Some minimal degenerative changes are present in the hips with some mild lateral acetabular osteophytes. No pelvic fracture is seen. No hip fractures are seen. XR/XR hip RT min 2V IMPRESSION: No right hip fracture detected. Mild degenerative changes as described above.
[2022-03-30 23:59] VITALS: BP 145/66; BP 157/74; PULSE 67; PULSE 76; RESP 16; TEMP 35.8; O2SAT 96; O2SAT 97; BMI 24.4
--- NOTE | 2022-03-31 00:28 | ED_ITS ---
HPI - General Adult General Chief complaint: Fall Stated complaint: right hip pain Time Seen by Provider: 03/31/22 00:26 Source: patient and EMS Mode of arrival: EMS Limitations: no limitations History of Present Illness HPI narrative: Patient came in for evaluation of her right hip pain. Pain started about 30 days ago when he was walking, pain is localized to the right of area, patient declined any fall or injury to the right hip. Pain described as moderate 6/10, with movement and bearing weight. Declined back pain, no dysuria, blood in the urine. Related Data Home Medications Medication Instructions Recorded Confirmed amlodipine 5 mg tablet 1 tab PO DAILY 12/26/21 12/26/21 donepezil 10 mg tablet 1 tab PO BEDTIME 12/26/21 12/26/21 ferrous sulfate 325 mg (65 mg 1 tab PO DAILY 12/26/21 12/26/21 iron) tablet (iron) pantoprazole 40 mg tablet,delayed 1 tab PO DAILY 12/26/21 12/26/21 release rifaximin 550 mg tablet (Xifaxan) 1 tab PO BID 12/26/21 12/26/21 sitagliptin 100 mg tablet (Januvia) 1 tab PO DAILY 12/26/21 12/26/21 Allergies Allergy/AdvReac Type Severity Reaction Status Date / Time Penicillins [PENICILLINS] Allergy Unknown UNKNOWN Verified 12/27/21 17:28 Review of Systems Review of Systems: All other systems are reviewed and are negative Constitutional: Reports as per HPI and Reports no additional constitutional complaints Eyes: Reports as per HPI and Reports no additional eye complaints Reports system reviewed and no additional complaints, except as documented Cardiovascular: Reports as per HPI and Reports no additional cardiovascular complaints Respiratory: Reports as per HPI and Reports no additional respiratory complaints Gastrointestinal: Reports as per HPI and Reports no additional gastrointestinal complaints Genitourinary: Reports no additional female genitourinary complaints Musculoskeletal: Reports no additional musculoskeletal complaints Skin/Breast: Reports system reviewed and no additional complaints, except as docu Psychiatric: Reports no additional psychiatric complaints Endocrine: Reports no additional endocrine complaints Hematologic/Lymphatic: Reports no additional hematologic/lymphatic complaints Allergic/Immunologic: Reports no additional allergic/immunologic complaints Reports system reviewed and no additional complaints, except as documented and Reports Abnormal speech present PMFSH Past Medical History Medical History Alcohol abuse Diabetes 1.5, managed as type 2 Hypertension Liver cirrhosis Surgical History S/P TIPS (transjugular intrahepatic portosystemic shunt) Family History Family History Father Cancer Mother DVT (deep venous thrombosis) Social History Social History Household Members: None Housing: Apartment Do you presently have visiting nurse or other home services: No Alcohol intake: never Patient Tobacco Use Status: Never used Tobacco Advance Directives: No service: No Current occupational status: retired Physical Exam ED Vital Signs: Vital Signs - 24 hr 03/30/22 23:59 Temperature 96.4 F L Pulse Rate 67 Respiratory Rate 16 Blood Pressure 145/66 H Pulse Oximetry 97 BMI result Body Mass Index 24.4 Vital signs have been reviewed as appeared to be correct. Blood pressure normal. Heart rate normal. Respiration rate normal. Temperature normal. Oxygen saturation normal. Appearance: Alert. Oriented X3. No acute distress. Head: Normal external exam. Normocephalic. Atraumatic. No Siddiqi signs noted. No raccoon eyes noted Eyes: PERRLA. EOMI. Conjunctiva and sclera normal. Eyelids normal. ENT: TM's Normal. Pharynx normal. Uvula midline. Moist mucous membranes. No trismus noted. No drooling noted. No muffled voice noted. Neck: Normal inspection. Neck supple. FROM. No adenopathy. Thyroid Normal. No meningeal signs. No neck mass noted. CVS: Normal heart rate and rhythm. Heart sound normal. No murmurs noted. Pulses normal throughout. Respiratory: No respiratory distress. Painless inspiration. Breath sounds normal. No wheezes/rales/rhonchi noted. Chest nontender. No accessory muscle usage noted or decreased air movement noted. Abdomen: Soft and nontender. Bowel sounds normal in all 4 quadrants. No distention noted. No organomegaly noted. No visible injury noted. Back: No CVA tenderness. Full range of motion noted. Skin: Skin warm and dry. Normal skin color. Normal skin turgor. No rashes/lesions/lacerations noted. Extremities: No lower extremity edema. Extremities exhibit normal range of motion. Extremities nontender. Neuro: Oriented X 3. Cranial nerve exam: II-XII are grossly intact No motor deficit. No sensory deficit. Reflexes normal. Course Course Course Narrative: Assessment and plan. 77-year-old male with 1 month of right hip pain with no trauma or injury patient feels better with oxycodone. Patient's symptoms could be related to lumbar radiculopathy with radiation to the right hip area patient has a intact neuro exam able to ambulate in the emergency department no urinary incontinence or stool incontinence. patient was instructed to follow up with PCP for possible outpatient MRI if the symptoms persist. discharge patient to follow-up with his PCP use Tylenol for pain. Medical Decision Making Lab Data Labs: Lab Results 03/31/22 Range/Units 01:40 Urine Color YELLOW Urine Appearance CLEAR Urine pH 6.0 (5.0-8.0) Ur Specific [place] 1.020 (1.005-1.025) Urine Protein NEG (NEG-TRACE) MG/DL Urine Glucose (UA) 100 H (NEG) MG/DL Urine Ketones NEG (NEG) MG/DL Urine Blood NEG (NEG) Urine Nitrite NEG (NEG) Ur Leukocyte Esterase 1+ H (NEG) Urine RBC 0-2 (0) /HPF Urine WBC 10-14 H (0-4) /HPF Ur Squamous Epith Cells TRACE /LPF Urine Bacteria TRACE /LPF Discharge Plan Discharge Clinical Impression: Hip pain Patient Disposition: Home, Self-Care Instructions: Hip Pain (ED) Prescriptions: No Action donepezil 10 mg tablet 1 tab PO BEDTIME 0RF amlodipine 5 mg tablet 1 tab PO DAILY 0RF pantoprazole 40 mg tablet,delayed release (DR/EC) 1 tab PO DAILY 0RF ferrous sulfate [iron] 325 mg (65 mg iron) tablet 1 tab PO DAILY 0RF Januvia 100 mg tablet 1 tab PO DAILY 0RF Xifaxan 550 mg tablet 1 tab PO BID 0RF Referrals: Physician,Unknown J [Primary Care Provider] -
[2022-03-31] MEDS: oxyCODONE HCl Immed Release 5 MG TABLET PO (01:29)
[2022-03-31 01:47] LABS: Appearance Urine CLEAR; Color Urine YELLOW; Glucose Urine UA 100 MG/DL (NEG); Leukocyte Esterase Urine 1+ (NEG); Nitrite Urine NEG (NEG); UACC Culture Trigger YES; Urine Blood NEG (NEG); Urine Ketones NEG (NEG); Urine Protein NEG (NEG-TRACE)
[2022-03-31 01:56] LABS: Bacteria Urine TRACE /LPF; RBC Urine 0-2 /HPF (0); Squamous Epithelial Cell Urine TRACE /LPF
== END 2022-03-31 02:47 | disposition home or self-care (01) ==
PROVIDERS: Emergency Provider Emergency Medicine
DX: M25.552 Pain in left hip (principal); Z79.899 Other long term (current) drug therapy
CPT/HCPCS: 73502; 81001; 87086; 99283

== ENCOUNTER 2022-09-24 23:29 | Emergency (ER) | payer MEDICARE, SELFPAY ==
[2022-09-24 23:52] VITALS: BP 124/57; PULSE 74; RESP 13; TEMP 36.6; O2SAT 95; BMI 24.1
[2022-09-25] VITALS: BP 135/52; PULSE 70; O2SAT 98
--- NOTE | 2022-09-25 01:14 | ED_ITS ---
HPI - General Adult General Chief complaint: General Medical <Bryon Foss MD - Last Filed: 09/25/22 01:24> Stated complaint: diarrhea <Bryon Foss MD - Last Filed: 09/25/22:24> Time Seen by Provider: 09/25/22 00:54 <Bryon Foss MD - Last Filed: 09/25/22 01:24> Source: patient <Bryon Foss MD - Last Filed: 09/25/22 01:24> Mode of arrival: ambulatory <Bryon Foss MD - Last Filed: 09/25/22 01:24> History of Present Illness HPI narrative: 77-year-old male with a past medical history of hypertension presents to the emergency department complaining of diarrhea. The patient states he had diarrhea which started earlier today, without any clear reason. The patient states that he has not had any ill contacts, has not been on any antibiotics recently, and has not had any travel. The patient additionally states he has not had any fevers, shaking chills, abdominal pain or vomiting. Diarrhea has persisted throughout the day, although it the patient has not taken any medication or done any thing at home to attempt to help the problem. <Bryon Foss MD - Last Filed: 09/25/22 01:24> Onset (ago): day(s) (1) <Bryon Foss MD - Last Filed: 09/25/22:24> Radiation: non-radiation <Bryon Foss MD - Last Filed: 09/25/22 01:24> Severity: moderate <Bryon Foss MD - Last Filed: 09/25/22 01:24> Related Data Home medications: Home Medications Medication Instructions Recorded Confirmed amlodipine 5 mg tablet 1 tab PO DAILY 12/26/21 12/26/21 donepezil 10 mg tablet 1 tab PO BEDTIME 12/26/21 12/26/21 ferrous sulfate 325 mg (65 mg 1 tab PO DAILY 12/26/21 12/26/21 iron) tablet (iron) pantoprazole 40 mg tablet,delayed 1 tab PO DAILY 12/26/21 12/26/21 release rifaximin 550 mg tablet (Xifaxan) 1 tab PO BID 12/26/21 12/26/21 sitagliptin 100 mg tablet (Januvia) 1 tab PO DAILY 12/26/21 12/26/21 <Bryon Foss MD - Last Filed: 09/25/22 01:24> Allergies/adverse reactions: Allergies Allergy/AdvReac Type Severity Reaction Status Date / Time Penicillins [PENICILLINS] Allergy Unknown UNKNOWN Verified 12/27/21 17:28 <Bryon Foss MD - Last Filed: 09/25/22 01:24> Review of Systems Review of Systems: Yes all other systems are reviewed and are negative <Bryon Foss MD - Last Filed: 09/25/22 01:24> Constitutional: Constitutional: Denies chills and Denies fever(s) <Bryon Foss MD - Last Filed: 09/25/22 01:24> Eyes: Eyes: Denies blurry vision and Denies change in vision <Bryon Foss MD - Last Filed: 09/25/22 01:24> ENT: Reports system reviewed and no additional complaints, except as documented <Bryon Foss MD - Last Filed: 09/25/22 01:24> Cardiovascular: Cardiovascular: Denies chest pain, Denies irregular heart rhythm, Denies lightheadedness and Denies Loss of Consciousness <Bryon Foss MD - Last Filed: 09/25/22 01:24> Respiratory: Respiratory: Denies cough and Denies wheezing <Bryon Foss MD - Last Filed: 09/25/22 01:24> Gastrointestinal: Gastrointestinal: Denies abdominal pain, Denies melena, Denies diarrhea, Denies nausea and Denies vomiting <Bryon Foss MD - Last Filed: 09/25/22 01:24> Genitourinary: Genitourinary: Reports no additional male genitourinary complai nts <Bryon Foss MD - Last Filed: 09/25/22 01:24> Musculoskeletal: Musculoskeletal: Reports no additional musculoskeletal complaints <Bryon Foss MD - Last Filed: 09/25/22 01:24> Neurologic: Reports system reviewed and no additional complaints, except as d ocumented <Bryon Foss MD - Last Filed: 09/25/22 01:24> Allergic/Immunologic: Allergic/Immunologic: Denies wheezing <Bryon Foss MD - Last Filed: 09/25/22 01:24> PMFSH Past Medical History Medical History: Medical History Alcohol abuse Diabetes 1.5, managed as type 2 Hypertension Liver cirrhosis <Bryon Foss MD - Last Filed: 09/25/22 01:24> Surgical History: Surgical History S/P TIPS (transjugular intrahepatic portosystemic shunt) <Bryon Foss MD - Last Filed: 09/25/22 01:24> Family History Family History: Family History Father Cancer Mother DVT (deep venous thrombosis) <Bryon Foss MD - Last Filed: 09/25/22 01:24> Social History Social History: Social History Household Members: None Housing: Apartment Do you presently have visiting nurse or other home services: No Alcohol intake: never Patient Tobacco Use Status: Never used Tobacco Advance Directives: No service: No Current occupational status: retired <Bryon Foss MD - Last Filed: 09/25/22 01:24> Physical Exam ED Vital Signs: Vital Signs - 24 hr 09/24/22 23:52 09/25/22 01:25 09/25/22 03:30 Temperature 97.8 F 98.2 F 97.8 F Pulse Rate 74 70 72 Respiratory Rate 13 16 19 Blood Pressure 124/57 L 112/52 L 134/59 L Pulse Oximetry 95 97 99 Oxygen Delivery Method Room Air Room Air Room Air 09/25/22 05:14 Temperature 97.7 F Pulse Rate 72 Respiratory Rate 16 Blood Pressure 129/64 Pulse Oximetry 98 Oxygen Delivery Method Room Air BMI result Body Mass Index 24.1 <Bryon Foss MD - Last Filed: 09/25/22 01:24> Vital Signs - 24 hr 09/24/22 23:52 09/25/22 01:25 09/25/22 03:30 Temperature 97.8 F 98.2 F 97.8 F Pulse Rate 74 70 72 Respiratory Rate 13 16 19 Blood Pressure 124/57 L 112/52 L 134/59 L Pulse Oximetry 95 97 99 Oxygen Delivery Method Room Air Room Air Room Air 09/25/22 05:14 Temperature 97.7 F Pulse Rate 72 Respiratory Rate 16 Blood Pressure 129/64 Pulse Oximetry 98 Oxygen Delivery Method Room Air BMI result Body Mass Index 24.1 <Edyta Rodriguez MD - Last Filed: 09/25/22 05:27> Vital signs are stable and normal <Bryon Foss MD - Last Filed: 09/25/22 01:24> Const General: cooperative and healthy appearing; No acute distress <Bryon Foss MD - Last Filed: 09/25/22 01:24> Nutritional Appearance: average body habitus <Bryon Foss MD - Last Filed: 09/25/22 01:24> HENMT Head: Yes normal to inspection, Yes normocephalic and Yes atraumatic <Bryon Foss MD - Last Filed: 09/25/22 01:24> Ears: hearing grossly normal bilaterally and external ears normal <Bryon Foss MD - Last Filed: 09/25/22 01:24> General nose exam: Normal external nose present <Bryon Foss MD - Last Filed: 09/25/22 01:24> Eyes Conjunctivae: conjunctivae normal <Bryon Foss MD - Last Filed: 09/25/22 01:24> Sclerae: sclerae normal <Bryon Foss MD - Last Filed: 09/25/22 01:24> EOM: EOMs intact bilaterally <Bryon Foss MD - Last Filed: 09/25/22 01:24> Neck Neck: Yes normal visual inspection and Yes full ROM <Bryon Foss MD - Last Filed: 09/25/22 01:24> Chest Chest palpation & inspection: normal inspection of the chest <Bryon Foss MD - Last Filed: 09/25/22 01:24> Resp Effort & Inspection: normal respiratory effort and no cough <Bryon Foss MD - Last Filed: 09/25/22 01:24> Cardio Rate: regular rate <Bryon Foss MD - Last Filed: 09/25/22 01:24> Rhythm: regular rhythm <Bryon Foss MD - Last Filed: 09/25/22 01:24> GI Inspection: Yes normal to inspection <Bryon Foss MD - Last Filed: 09/25/22 01:24> Palpation (GI): nontender <Bryon Foss MD - Last Filed: 09/25/22 01:24> Back/Spine/Pelvis Cervical Spine: normal cervical lordosis and cervical ROM normal <Bryon Foss MD - Last Filed: 09/25/22 01:24> Course Reevaluation(s) Reevaluation #1: On re-evaluation, patient was signed out to me regarding diarrhea, and on review of all investigations he is chronically stable without obvious electrolyte imbalances, patient received Lomotil while here and he states that he has had no further episodes of diarrhea. Patient is discharged home in stable condition with recommendations for him to use [id number] Lomotil and follow-up with his primary care provider on Monday morning. <Edyta Rodriguez MD - Last Filed: 09/25/22 05:27> Time: 05:25 <Edyta Rodriguez MD - Last Filed: 09/25/22 05:27> Medications Administered Discontinued Medications Generic Name Dose Route Start Last Admin Trade Name Freq PRN Reason Stop Dose Admin Diphenoxylate HCl/Atropine 2 tab 09/25/22 01:24 09/25/22 02:06 Diphenoxylate/Atrop 2.5/0.025 Tablet PO 09/25/22 01:25 2 tab ONCE ONE Administration Sodium Chloride 500 mls @ 250 mls/hr 09/25/22 02:00 09/25/22 02:30 Ns IV 09/25/22 03:59 250 mls/hr .Q2H JEREMY Administration <Bryon Foss MD - Last Filed: 09/25/22 01:24> Medications Administered Discontinued Medications Generic Name Dose Route Start Last Admin Trade Name Freq PRN Reason Stop Dose Admin Diphenoxylate HCl/Atropine 2 tab 09/25/22 01:24 09/25/22 02:06 Diphenoxylate/Atrop 2.5/0.025 Tablet PO 09/25/22 01:25 2 tab ONCE ONE Administration Sodium Chloride 500 mls @ 250 mls/hr 09/25/22 02:00 09/25/22 02:30 Ns IV 09/25/22 03:59 250 mls/hr .Q2H JEREMY Administration <Edyta Rodriguez MD - Last Filed: 09/25/22 05:27> Medical Decision Making Lab Data Result diagrams: : 09/25/22 01:47 09/25/22 01:47 <Bryon Foss MD - Last Filed: 09/25/22 01:24> Labs: Lab Results 09/25/22 09/25/22 09/25/22 Range/Units 01:42 01:47 01:47 WBC 3.1 L (4.8-10.8) X10*3/uL RBC 3.82 L (4.60-5.80) X10*6/uL Hgb 12.7 L (14.0-18.0) g/dl Hct 36.6 L (42.0-52.0) % MCV 95.8 (80.0-98.0) fL MCH 33.2 H (27.0-33.0) pg MCHC 34.7 (31.0-36.0) g/dl RDW 14.7 (11.0-16.0) % Plt Count 57 L (160-400) X10*3/uL MPV 10.0 (9.4-12.4) fL Immature Gran % (Auto) 0.3 (0.0-0.4) % Neut % (Auto) 55.3 (45-73) % Lymph % (Auto) 29.2 (20-40) % Stewart % (Auto) 11.7 H (2-11) % Eos % (Auto) 3.2 (0-4) % Baso % (Auto) 0.3 (0-2) % Lymph # (Auto) 0.9 L (1.2-4.9) X10*3/uL Stewart # (Auto) 0.4 (0.1-1.2) X10*3/uL Eos # (Auto) 0.1 (0.0-0.4) X10*3/uL Baso # (Auto) 0.0 (0.0-0.2) X10*3/uL Abs Immat Gran (auto) 0.01 (0.00-0.03) X10*3/uL Absolute Neuts (auto) 1.7 L (2.0-8.3) x10*3/uL Absolute Nucleated RBC 0.000 (0.0-0.012) X10*3/uL Nucleated RBC % (auto) 0.0 (0.0-0.2) /100WBC Sodium 142 (135-145) mmol/L Potassium 4.2 (3.3-5.1) mmol/L Chloride 109 H (96-108) mmol/L Carbon Dioxide 22 (22-29) mmol/L Anion Gap 15 (12-20) BUN 16 (9-16) mg/dL Creatinine 0.71 (0.5-1.4) mg/dL Estim Creat Clear Calc 94.1 Estimated GFR > 60 Random Glucose 146 H (60-115) mg/dL Calcium 9.1 (8.4-10.2) mg/dL COVID-19 ([facility]) Negative (Negative) COVID-19 Clin Com See Note <Bryon Foss MD - Last Filed: 09/25/22 01:24> Lab Results 09/25/22 09/25/22 09/25/22 Range/Units 01:42 01:47 01:47 WBC 3.1 L (4.8-10.8) X10*3/uL RBC 3.82 L (4.60-5.80) X10*6/uL Hgb 12.7 L (14.0-18.0) g/dl Hct 36.6 L (42.0-52.0) % MCV 95.8 (80.0-98.0) fL MCH 33.2 H (27.0-33.0) pg MCHC 34.7 (31.0-36.0) g/dl RDW 14.7 (11.0-16.0) % Plt Count 57 L (160-400) X10*3/uL MPV 10.0 (9.4-12.4) fL Immature Gran % (Auto) 0.3 (0.0-0.4) % Neut % (Auto) 55.3 (45-73) % Lymph % (Auto) 29.2 (20-40) % Stewart % (Auto) 11.7 H (2-11) % Eos % (Auto) 3.2 (0-4) % Baso % (Auto) 0.3 (0-2) % Lymph # (Auto) 0.9 L (1.2-4.9) X10*3/uL Stewart # (Auto) 0.4 (0.1-1.2) X10*3/uL Eos # (Auto) 0.1 (0.0-0.4) X10*3/uL Baso # (Auto) 0.0 (0.0-0.2) X10*3/uL Abs Immat Gran (auto) 0.01 (0.00-0.03) X10*3/uL Absolute Neuts (auto) 1.7 L (2.0-8.3) x10*3/uL Absolute Nucleated RBC 0.000 (0.0-0.012) X10*3/uL Nucleated RBC % (auto) 0.0 (0.0-0.2) /100WBC Sodium 142 (135-145) mmol/L Potassium 4.2 (3.3-5.1) mmol/L Chloride 109 H (96-108) mmol/L Carbon Dioxide 22 (22-29) mmol/L Anion Gap 15 (12-20) BUN 16 (9-16) mg/dL Creatinine 0.71 (0.5-1.4) mg/dL Estim Creat Clear Calc 94.1 Estimated GFR > 60 Random Glucose 146 H (60-115) mg/dL Calcium 9.1 (8.4-10.2) mg/dL COVID-19 ([facility]) Negative (Negative) COVID-19 Clin Com See Note <Edyta Rodriguez MD - Last Filed: 09/25/22 05:27> Discharge Plan Discharge Clinical Impression: Diarrhea <Bryon Foss MD - Last Filed: 09/25/22 01:24> Patient Disposition: Home, Self-Care <Bryon Foss MD - Last Filed: 09/25/22 01:24> Instructions: Nutrition Tips for Relief of Diarrhea (ED), Acute Diarrhea (ED) <Bryon Foss MD - Last Filed: 09/25/22 01:24> Additional Instructions: 1. Resume all home medications as prescribed. Especially your Xifaxan. 2. Follow-up with primary care provider by calling the office on Monday morning. Return to the ER for worsening symptoms. <Bryon Foss MD - Last Filed: 09/25/22 01:24> Prescriptions: No Action donepezil 10 mg tablet 1 tab PO BEDTIME amlodipine 5 mg tablet 1 tab PO DAILY pantoprazole 40 mg tablet,delayed release (DR/EC) 1 tab PO DAILY ferrous sulfate [iron] 325 mg (65 mg iron) tablet 1 tab PO DAILY Januvia 100 mg tablet 1 tab PO DAILY Xifaxan 550 mg tablet 1 tab PO BID <Bryon Foss MD - Last Filed: 09/25/22 01:24>
[2022-09-25 01:25] VITALS: BP 112/52; PULSE 70; RESP 16; TEMP 36.8; O2SAT 97
[2022-09-25 01:51] LABS: MANUAL DIFF FLAG NO
[2022-09-25 01:52] LABS: Basophils Percent Auto 0.3 % (0-2); Eosinophils Absolute Auto 0.1 X10*3/uL (0.0-0.4); Eosinophils Percent Auto 3.2 % (0-4); Hematocrit 36.6 % (42.0-52.0); Hemoglobin 12.7 g/dl (14.0-18.0); Imm Gran Abs Auto 0.01 X10*3/uL (0.00-0.03); Imm Gran Pct Auto 0.3 % (0.0-0.4); Lymphocytes Absolute Auto 0.9 X10*3/uL (1.2-4.9); Lymphocytes Percent Auto 29.2 % (20-40); Mean Corpuscular HGB Conc 34.7 g/dl (31.0-36.0); Mean Corpuscular Hemoglobin 33.2 pg (27.0-33.0); Mean Corpuscular Volume 95.8 fL (80.0-98.0); Monocytes Absolute Auto 0.4 X10*3/uL (0.1-1.2); Monocytes Percent Auto 11.7 % (2-11); Neutrophils Absolute Auto 1.7 x10*3/uL (2.0-8.3); Neutrophils Percent Auto 55.3 % (45-73); Red Blood Count 3.82 X10*6/uL (4.60-5.80); Red Cell Distribution Width 14.7 % (11.0-16.0); White Blood Count 3.1 X10*3/uL (4.8-10.8)
[2022-09-25 01:54] LABS: Platelet Count 57 X10*3/uL (160-400)
[2022-09-25] MEDS: Diphenoxylate/Atrop 2.5/0.025 TABLET 2 TAB PO (02:06)
[2022-09-25 02:08] LABS: COVID-19 Test Negative (Negative)
[2022-09-25 02:18] LABS: Anion Gap 15 (12-20); Blood Urea Nitrogen 16 mg/dL (9-16); Calcium 9.1 mg/dL (8.4-10.2); Carbon Dioxide 22 mmol/L (22-29); Chloride 109 mmol/L (96-108); Creatinine Clr Calc Pharmacy 94.1; Estimated Glomerular Filt Rate > 60; Glucose Random 146 mg/dL (60-115); Potassium 4.2 mmol/L (3.3-5.1); Sodium 142 mmol/L (135-145)
[2022-09-25] MEDS: 0.9 % Sodium Chloride 500 ML 250 ML IV (02:30)
[2022-09-25 03:30] VITALS: BP 134/59; PULSE 72; RESP 19; TEMP 36.6; O2SAT 99
--- NOTE | 2022-09-25 03:34 | PC.NURSE ---
Assumed care of patient.
[2022-09-25 05:14] VITALS: BP 129/64; PULSE 72; RESP 16; TEMP 36.5; O2SAT 98
--- NOTE | 2022-09-25 05:58 | PC.NURSE ---
pt a&o, no sob or chest pain. Iv removed , Reviewed discharge instructions with patient. patient verbalized understanding.Patient given [facility] pass for right home.
[2022-09-25] MEDS: Diphenoxylate/Atrop 2.5/0.025 TABLET 1 TAB PO (06:44)
== END 2022-09-25 06:03 | disposition home or self-care (01) ==
PROVIDERS: Emergency Medicine; Emergency Provider Student in an Organized Health Care Education/Training Program
DX: R19.7 Diarrhea, unspecified (principal); Z20.822 Contact with and (suspected) exposure to COVID-19; Z79.899 Other long term (current) drug therapy
CPT/HCPCS: 80048; 85025; 87635; 96360; 99284

== ENCOUNTER 2022-12-23 11:34 | Emergency (ER) | payer MEDICARE, SELFPAY ==
--- NOTE | ~2022-12-23 | XR_ITS ---
EXAMINATION: XR CHEST CLINICAL INFORMATION: Cough COMPARISON: Chest x-ray 02/26/2018 TECHNIQUE: Frontal view of the chest was obtained. FINDINGS: No airspace consolidation. No pleural effusion or pneumothorax. Cardiomediastinal silhouette is within normal limits. No cardiomegaly. No evidence of pulmonary edema. Deformity of the left scapula consistent with prior healed fracture. Chronic grade 3 AC joint separation on the left redemonstrated. Chronic left rib fracture deformities. No acute osseous injury. TIPS shunt projects over the right upper quadrant. Embolization coils project in the left upper quadrant. XR/XR chest 1V IMPRESSION: 1. No acute pulmonary process.
--- NOTE | ~2022-12-23 | CT_ITS ---
EXAMINATION: CT head/brain wo IV con CLINICAL INFORMATION: Reason for Exam AMS COMPARISON: CT brain 02/26/2018 TECHNIQUE: Contiguous axial imaging was performed from the skull base to vertex without intravenous contrast. Sagittal and coronal reformatted images were obtained. This CT examination was performed using dose optimization techniques as appropriate, variously including the following: * Automated exposure control * Adjustment of mA and/or kV according to patient size (this includes techniques or standardized protocols for targeted exams where dose is matched to indication/reason for exam; i.e. extremities or head) Use of iterative reconstruction technique DLP: 1391 mGy-cm FINDINGS: Multiple bifrontal sindy holes. Age-indeterminate moderately displaced left nasal bone fracture, new from prior without overlying soft tissue swelling. The mastoid air cells and visualized portions of the paranasal sinuses are well aerated. There is no evidence of acute intracranial hemorrhage or territorial infarction. No abnormal mass effect or midline shift is seen. Similar hypodensity involving the right occipital lobe, which may reflect sequelae of remote infarct. No extra-axial fluid collections are identified. Right occipital there is bifrontal dural thickening, which on the right demonstrates coarse calcification. No hydrocephalus. Proportional prominence of the ventricles and sulcal spaces is consistent with mild volume loss. Patchy periventricular and deep white matter hypoattenuation is consistent with moderate small vessel ischemic changes. CT/CT head/brain wo IV con IMPRESSION: 1. New age-indeterminate moderately displaced left nasal bone fracture without overlying soft tissue swelling. Recommend correlation with point tenderness. No acute intracranial abnormality. 2. Similar hypodensity involving the right occipital lobe which may reflect sequelae of remote infarct, superimposed on a background of microvascular ischemic change and moderate volume loss. 3. Post surgical changes of bifrontal sindy holes with trace bifrontal dural thickening, which on the right demonstrates coarse calcification.
[2022-12-23 11:58] VITALS: BP 117/36; BP 120/58; PULSE 82; RESP 16; TEMP 36.7; O2SAT 100; O2SAT 99; BMI 24.4
[2022-12-23 12:11] LABS: MANUAL DIFF FLAG NO
[2022-12-23 12:21] LABS: Basophils Percent Auto 0.2 % (0-2); Eosinophils Percent Auto 0.2 % (0-4); Hematocrit 40.1 % (42.0-52.0); Hemoglobin 13.3 g/dl (14.0-18.0); Imm Gran Abs Auto 0.03 X10*3/uL (0.00-0.03); Imm Gran Pct Auto 0.5 % (0.0-0.4); Lymphocytes Absolute Auto 0.3 X10*3/uL (1.2-4.9); Lymphocytes Percent Auto 4.2 % (20-40); Mean Corpuscular HGB Conc 33.2 g/dl (31.0-36.0); Mean Corpuscular Hemoglobin 30.1 pg (27.0-33.0); Mean Corpuscular Volume 90.7 fL (80.0-98.0); Mean Platelet Volume 10.3 fL (9.4-12.4); Monocytes Absolute Auto 0.5 X10*3/uL (0.1-1.2); Monocytes Percent Auto 7.7 % (2-11); Neutrophils Absolute Auto 5.4 x10*3/uL (2.0-8.3); Neutrophils Percent Auto 87.2 % (45-73); Platelet Count 84 X10*3/uL (160-400); Red Blood Count 4.42 X10*6/uL (4.60-5.80); Red Cell Distribution Width 15.4 % (11.0-16.0); White Blood Count 6.2 X10*3/uL (4.8-10.8)
[2022-12-23 12:58] LABS: Alanine Aminotransferase 36 U/L (0-40); Albumin Level 2.7 g/dL (3.5-5.0); Alkaline Phosphatase 112 U/L (39-117); Anion Gap 14 (12-20); Aspartate Amino Transferase 58 U/L (5-37); Bilirubin Total 3.8 mg/dL (0.0-1.0); Blood Urea Nitrogen 11 mg/dL (9-16); Calcium 8.1 mg/dL (8.4-10.2); Carbon Dioxide 20 mmol/L (22-29); Chloride 110 mmol/L (96-108); Creatinine Clr Calc Pharmacy 96.8; Estimated Glomerular Filt Rate > 60; Glucose Random 197 mg/dL (60-115); Potassium 4.3 mmol/L (3.3-5.1); Sodium 140 mmol/L (135-145); Total Protein 6.2 g/dL (6.5-8.0)
[2022-12-23 13:25] VITALS: BP 115/50; PULSE 79; RESP 16; O2SAT 97
--- NOTE | 2022-12-23 13:27 | PC.NURSE ---
Alert and oriented, resp even and unlabored. Reporting diarrhea for 3 days, denies any accompanying symptoms. States he lives at home alone and friend found him this morning in bed covered in diarrhea.
[2022-12-23 15:29] VITALS: BP 138/63; PULSE 83; RESP 15; TEMP 36.8; O2SAT 99
--- NOTE | 2022-12-23 16:26 | ED_ITS ---
HPI - General Adult General Chief complaint: Nausea/Vomiting/Diarrhea Stated complaint: Diarrhea/not feeling well, Found by friend per EMS Time Seen by Provider: 12/23/22 12:24 Source: EMS Mode of arrival: EMS History of Present Illness HPI narrative: 77-year-old male who presents with ?not feeling well? for several days, EMS states that his friend came over and found him in bed. Patient denies that he has any family members to check up on him. Patient also states he has had diarrhea for 3 days, but on my discussion with him he denies any fever, chills, shortness of breath, chest pain/palpitations, nausea, vomiting or diarrhea and denies any dysuria. Related Data Home Medications Medication Instructions Recorded Confirmed amlodipine 5 mg tablet 1 tab PO DAILY 12/26/21 12/26/21 donepezil 10 mg tablet 1 tab PO BEDTIME 12/26/21 12/26/21 ferrous sulfate 325 mg (65 mg 1 tab PO DAILY 12/26/21 12/26/21 iron) tablet (iron) pantoprazole 40 mg tablet,delayed 1 tab PO DAILY 12/26/21 12/26/21 release rifaximin 550 mg tablet (Xifaxan) 1 tab PO BID 12/26/21 12/26/21 sitagliptin phosphate 100 mg 1 tab PO DAILY 12/26/21 12/26/21 tablet (Januvia) Allergies Allergy/AdvReac Type Severity Reaction Status Date / Time Penicillins [PENICILLINS] Allergy Unknown UNKNOWN Verified 12/27/21 17:28 Review of Systems Review of Systems: Pertinent positives and negatives as stated in HPI PMFSH Past Medical History Source: nursing notes reviewed Medical History Alcohol abuse Diabetes 1.5, managed as type 2 Hypertension Liver cirrhosis Surgical History S/P TIPS (transjugular intrahepatic portosystemic shunt) Family History Family History Father Cancer Mother DVT (deep venous thrombosis) Social History Social History Household Members: None Housing: Apartment Do you presently have visiting nurse or other home services: No Alcohol intake: never Patient Tobacco Use Status: Never used Tobacco Advance Directives: No Advance Directives Information Provided: Yes service: No Current occupational status: retired Physical Exam ED Vital Signs: Vital Signs - 24 hr 12/23/22 11:58 12/23/22 13:25 12/23/22 15:29 Temperature 98.1 F 98.2 F Pulse Rate 82 79 83 Respiratory Rate 16 16 15 Blood Pressure 117/36 L 115/50 L 138/63 Pulse Oximetry 99 97 99 Oxygen Delivery Method Room Air Room Air Room Air 12/23/22 18:06 Temperature 98.1 F Pulse Rate 83 Respiratory Rate 17 Blood Pressure 149/69 H Pulse Oximetry 98 Oxygen Delivery Method Room Air BMI result Body Mass Index 24.4 VITAL SIGNS: Reviewed. GENERAL: Well developed, well nourished, in no acute distress. HEAD: Normocephalic/atraumatic EYES: PERRLA, EOMI EARS: Ext canals without abnormality OROPHARYNX: no oral lesions noted, posterior pharynx clear LUNGS: Normal breath sounds. No adventitious sounds or accessory muscle use. SpO2<98> CARDIOVASCULAR: Regular rate and rhythm without noted murmurs, no JVD or lower extremity edema. ABDOMEN: Soft, non-tender, non-distended with bowel sounds. MUSCULOSKELETAL: No tenderness, deformities, or effusions noted on gross inspection. EXTREMITIES: No cyanosis, clubbing or edema. SKIN: Inspection of the skin reveals no rashes NEUROLOGIC: Alert and oriented x 2. Strength and sensation to light touch were grossly intact x 4. Medications Administered Discontinued Medications Generic Name Dose Route Start Last Admin Trade Name Freq PRN Reason Stop Dose Admin Nitrofurantoin Macrocrystals 100 mg 12/23/22 17:04 12/23/22 18:10 Nitrofurantoin Monohyd/M-Cryst 100 Mg Capsule PO 12/23/22 17:05 100 mg ONCE ONE Administration Medical Decision Making Medical Decision Making MDM Narrative: 77-year-old male who presents with not feeling well, and lives by himself. I reviewed all investigations and there are no acute findings other than UTI for which patient will receive antibiotics. In addition, it is felt that patient is not a safe discharge to home for himself. Case management physical therapy will continue the follow-up for at a minimum short-term rehab. Will order chest x-ray and 1 L of IV fluids. Imaging studies did note that patient has a nasal bone fracture. Differential Diagnosis Differential Diagnoses: The differential diagnosis associated with the presentation includes Please see the discussion above Lab Data MDM Lab Attestation statement: I reviewed the patient's lab results. Please see the discussion above 12/23/22 12:08 12/23/22 12:08 Labs: Lab Results 12/23/22 12/23/22 12/23/22 Range/Units 12:08 12:08 16:39 WBC 6.2 (4.8-10.8) X10*3/uL RBC 4.42 L (4.60-5.80) X10*6/uL Hgb 13.3 L (14.0-18.0) g/dl Hct 40.1 L (42.0-52.0) % MCV 90.7 (80.0-98.0) fL MCH 30.1 (27.0-33.0) pg MCHC 33.2 (31.0-36.0) g/dl RDW 15.4 (11.0-16.0) % Plt Count 84 L D (160-400) X10*3/uL MPV 10.3 (9.4-12.4) fL Immature Gran % (Auto) 0.5 H (0.0-0.4) % Neut % (Auto) 87.2 H (45-73) % Lymph % (Auto) 4.2 L (20-40) % [place] % (Auto) 7.7 (2-11) % Eos % (Auto) 0.2 (0-4) % Baso % (Auto) 0.2 (0-2) % Lymph # (Auto) 0.3 L (1.2-4.9) X10*3/uL [place] # (Auto) 0.5 (0.1-1.2) X10*3/uL Eos # (Auto) 0.0 (0.0-0.4) X10*3/uL Baso # (Auto) 0.0 (0.0-0.2) X10*3/uL Abs Immat Gran (auto) 0.03 (0.00-0.03) X10*3/uL Absolute Neuts (auto) 5.4 (2.0-8.3) x10*3/uL Absolute Nucleated RBC 0.000 (0.0-0.012) X10*3/uL Nucleated RBC % (auto) 0.0 (0.0-0.2) /100WBC Sodium 140 (135-145) mmol/L Potassium 4.3 (3.3-5.1) mmol/L Chloride 110 H (96-108) mmol/L Carbon Dioxide 20 L (22-29) mmol/L Anion Gap 14 (12-20) BUN 11 (9-16) mg/dL Creatinine 0.69 (0.5-1.4) mg/dL Estim Creat Clear Calc 96.8 Estimated GFR > 60 Random Glucose 197 H (60-115) mg/dL Calcium 8.1 L D (8.4-10.2) mg/dL Total Bilirubin 3.8 H (0.0-1.0) mg/dL AST 58 H (5-37) U/L ALT 36 (0-40) U/L Alkaline Phosphatase 112 (39-117) U/L Total Protein 6.2 L (6.5-8.0) g/dL Albumin 2.7 L (3.5-5.0) g/dL Urine Color Urine Appearance Urine pH (5.0-9.0) Ur Specific [place] (1.005-1.025) Urine Protein (Neg-Trace) mg/dL Urine Glucose (UA) (Negative) mg/dL Urine Ketones (Negative) mg/dL Urine Blood (Negative) Urine Nitrite (Negative) Ur Leukocyte Esterase (Negative) Urine RBC (0-2) /HPF Urine WBC (0-5) /HPF Ur Squamous Epith Cells (0-2) /HPF Urine Bacteria (None Seen) Hyaline Casts (0-2) /LPF COVID-19 (MARIA INES) (Negative) COVID-19 Clin Com Influenza Type A (PHANI) Negative (Negative) Influenza Type B (PHANI) Negative (Negative) Influenza A & B Note See Note 12/23/22 12/23/22 Range/Units 16:39 16:39 WBC (4.8-10.8) X10*3/uL RBC (4.60-5.80) X10*6/uL Hgb (14.0-18.0) g/dl Hct (42.0-52.0) % MCV (80.0-98.0) fL MCH (27.0-33.0) pg MCHC (31.0-36.0) g/dl RDW (11.0-16.0) % Plt Count (160-400) X10*3/uL MPV (9.4-12.4) fL Immature Gran % (Auto) (0.0-0.4) % Neut % (Auto) (45-73) % Lymph % (Auto) (20-40) % [place] % (Auto) (2-11) % Eos % (Auto) (0-4) % Baso % (Auto) (0-2) % Lymph # (Auto) (1.2-4.9) X10*3/uL [place] # (Auto) (0.1-1.2) X10*3/uL Eos # (Auto) (0.0-0.4) X10*3/uL Baso # (Auto) (0.0-0.2) X10*3/uL Abs Immat Gran (auto) (0.00-0.03) X10*3/uL Absolute Neuts (auto) (2.0-8.3) x10*3/uL Absolute Nucleated RBC (0.0-0.012) X10*3/uL Nucleated RBC % (auto) (0.0-0.2) /100WBC Sodium (135-145) mmol/L Potassium (3.3-5.1) mmol/L Chloride (96-108) mmol/L Carbon Dioxide (22-29) mmol/L Anion Gap (12-20) BUN (9-16) mg/dL Creatinine (0.5-1.4) mg/dL Estim Creat Clear Calc Estimated GFR Random Glucose (60-115) mg/dL Calcium (8.4-10.2) mg/dL Total Bilirubin (0.0-1.0) mg/dL AST (5-37) U/L ALT (0-40) U/L Alkaline Phosphatase (39-117) U/L Total Protein (6.5-8.0) g/dL Albumin (3.5-5.0) g/dL Urine Color Dark Yellow Urine Appearance Clear Urine pH 6.0 (5.0-9.0) Ur Specific [place] 1.025 (1.005-1.025) Urine Protein Negative (Neg-Trace) mg/dL Urine Glucose (UA) Negative (Negative) mg/dL Urine Ketones Trace (Negative) mg/dL Urine Blood Negative (Negative) Urine Nitrite Negative (Negative) Ur Leukocyte Esterase Moderate (2+) H (Negative) Urine RBC 0-2 (0-2) /HPF Urine WBC 6-10 H (0-5) /HPF Ur Squamous Epith Cells 0-2 (0-2) /HPF Urine Bacteria None Seen (None Seen) Hyaline Casts 0-2 (0-2) /LPF COVID-19 (MARIA INES) Negative (Negative) COVID-19 Clin Com See Note Influenza Type A (PHANI) (Negative) Influenza Type B (PHANI) (Negative) Influenza A & B Note Radiology Impression Radiologist Impression: My interpretation is in agreement with radiology's impression of the imaging studies. External Record Review External record reviewed: Outpatient record and Prior outpatient labs Chronic Conditions Patient?s care impacted by: Diabetes Critical Care Time Critical Care Time Critical Care Time: Yes Total Critical Care Time: 30 Attestation: I personally attest to this time spent taking care of the patient. Discharge Plan Discharge Clinical Impression: Diarrhea, Dehydration, Acute UTI, Fracture, nasal Patient Disposition: Still a Patient Prescriptions: No Action donepezil 10 mg tablet 1 tab PO BEDTIME amlodipine 5 mg tablet 1 tab PO DAILY pantoprazole 40 mg tablet,delayed release (DR/EC) 1 tab PO DAILY ferrous sulfate [iron] 325 mg (65 mg iron) tablet 1 tab PO DAILY Januvia 100 mg tablet 1 tab PO DAILY Xifaxan 550 mg tablet 1 tab PO BID
[2022-12-23 16:49] LABS: Appearance Urine Clear; Color Urine Dark Yellow; Glucose Urine UA Negative (Negative); Leukocyte Esterase Urine Moderate (2+) (Negative); Nitrite Urine Negative (Negative); Specific Gravity - Urine 1.025 (1.005-1.025); UMIC TRIGGER UACC YES; Urine Blood Negative (Negative); Urine Ketones Trace mg/dL (Negative); Urine Protein Negative (Neg-Trace)
[2022-12-23 16:52] LABS: Bacteria Urine None Seen (None Seen); Hyaline Casts Urine 0-2 /LPF (0-2); RBC Urine 0-2 /HPF (0-2); Squamous Epithelial Cell Urine 0-2 /HPF (0-2); UACC Culture Trigger YES
[2022-12-23 17:07] LABS: COVID-19 Test Negative (Negative); IDNOW Serial# 16C4AD1C; IDNOW Serial# BCCEAD1C; Influenza A Negative (Negative)
[2022-12-23 17:08] LABS: Influenza B2 Negative (Negative)
--- NOTE | 2022-12-23 17:40 | PC.NURSE ---
Pt took out his own IV, linens changed and new albert provided. Bladder scan done with 320ml, pt able to void using urinal with 280ml output. Plan for PT/ERIC.
--- NOTE | 2022-12-23 17:54 | MHC.EDTECH ---
Pt reminded that a urine sample is needed. Pt does not need to go at the moment. Pt reminded to ring call welsh when he is ready to go
[2022-12-23 18:06] VITALS: BP 149/69; PULSE 83; RESP 17; TEMP 36.7; O2SAT 98
[2022-12-23] MEDS: Nitrofurantoin Monohyd/M-Cryst 100 MG CAPSULE PO ×2 (18:10→20:19)
--- NOTE | 2022-12-23 19:16 | PHA.MEDREC ---
Pharmacy Consult ? Medication Reconciliation Pharmacy has completed the medication reconciliation.
[2022-12-23] MEDS: 0.9 % Sodium Chloride 1,000 ML 999 ML IV (20:12)
--- NOTE | 2022-12-23 20:20 | PC.NURSE ---
Addendum entered by Yessica Parsons 12/24/22 05:07: PT incontinent of urine, ambulated with staff assist to BR, incontinent care provided. Addendum entered by Yessica Parsons 12/24/22 00:39: PT A&O to self. Incontinent of stool, whole bed changed with two assist, incontinent care provided. PT coccyx red blanchable, barrier cream appiled. Stool sample collected and sent to lab. Original Note: New IV line placed, fluids running as documented.
[2022-12-23 20:32] VITALS: BP 150/71; PULSE 74; RESP 18; TEMP 36.7; O2SAT 97
--- NOTE | 2022-12-23 23:04 | MHC.CM.ED ---
Addendum entered by Tracy Dick 12/23/22 23:11: CM unable to contact [facility] for last office visit and any contact information due to lateness of hour and office being closed. Original Note: CM met with patient at request of Dr. Rodriguez. Pt lives alone. Dementia. Poor memory noted. States needs help at home. Found by friend covered in diarrhea. Thinks he had 2 covid vax. PCP [facility], cannot remember name. States HCP is Yuko Levy (daughter). No telephone number on file.Lives in [place], [place]. No HCP on file. Patient is capable of completing HCP. CM unable to complete tonight. Has friend who drives him, Jarrell Johnson ([phone]). CM unable to call Jarrell and unable to find contact information for patient's daughter. PT is pending. Has [employer]. Referrals placed. D/C plan: [facility]. CM will follow for d/c planning.
[2022-12-24 06:18] VITALS: BP 139/68; PULSE 66; RESP 12; TEMP 36.7; O2SAT 98
[2022-12-24] MEDS: Nitrofurantoin Monohyd/M-Cryst 100 MG CAPSULE PO (08:20)
[2022-12-24 08:51] VITALS: BP 144/69; PULSE 76; RESP 18; TEMP 36.7; O2SAT 97
[2022-12-24 10:38] LABS: Ammonia 70 umol/L (13-55)
[2022-12-24 11:05] VITALS: BP 144/69; PULSE 76; O2SAT 97
--- NOTE | 2022-12-24 14:24 | MHC.CM.PN ---
Addendum entered by Shonna Guido 12/25/22 14:17: LATE CHARTING: The patient received 4 bed offers for [facility]. He chose [facility]. All dc info was sent to the facility. BLS transport to [facility] 4pm warehouse picker [facility] [place]. Addendum entered by Shonna Guido 12/24/22 14:29: A Copy of the patient's HCP has been scanned into his EMR Original Note: A HCP has been found in Historical visits. Jarrell Johnson is the person named. A PT eval was performed. The recommendation is STR. The evaluation has been sent to the facilities that were referred yesterday.
[2022-12-24] MEDS: Lactulose 20 GM/30 ML SOLUTION 10 GM PO (14:55)
[2022-12-24] MEDS: Gabapentin 100 MG CAPSULE PO (14:56)
[2022-12-24 14:57] VITALS: BP 136/68; PULSE 76; RESP 16; TEMP 36.6; O2SAT 100
--- NOTE | 2022-12-24 15:03 | PC.NURSE ---
report received from EDA Mariscal Pt is resting comfortably on stretcher at this time, verbalizes no pain, VSS, 3pm medications administered per MAR. Awaiting bed placement at rehab facility
--- NOTE | 2022-12-24 15:19 | PC.NURSE ---
Per CM, pt will be going to [facility] at 4pm today
== END 2022-12-24 16:25 ==
PROVIDERS: Nurse Practitioner Family; Emergency Provider Student in an Organized Health Care Education/Training Program
DX: S02.2XXA Fracture of nasal bones, initial encounter for closed fracture (principal); R11.2 Nausea with vomiting, unspecified; R19.7 Diarrhea, unspecified; R26.2 Difficulty in walking, not elsewhere classified; E86.0 Dehydration; N39.0 Urinary tract infection, site not specified; R53.1 Weakness; W01.0XXA Fall on same level from slipping, tripping and stumbling without subsequent striking against object, initial encounter; Y93.9 Activity, unspecified; Y92.9 Unspecified place or not applicable; Y99.9 Unspecified external cause status; Z20.828 Contact with and (suspected) exposure to other viral communicable diseases; Z20.822 Contact with and (suspected) exposure to COVID-19; Z79.899 Other long term (current) drug therapy
CPT/HCPCS: 36415; 70450; 71045; 80053; 81001; 82140; 85025; 87086; 87502; 87507; 87635; 96360; 97161; 99285

== ENCOUNTER 2023-01-25 06:16 | Emergency (ER) | payer MEDICARE, SELFPAY ==
--- NOTE | ~2023-01-25 | XR_ITS ---
EXAMINATION: XR CHEST CLINICAL INFORMATION: Chest wall pain COMPARISON: 12/23/2022 TECHNIQUE: 2 views of the chest were obtained. FINDINGS: Heart and pulmonary vessels appear normal. No infiltrates, effusions or lung masses are seen Degenerative changes are present in the spine. Old healed left rib fractures are present. Embolization coils are noted in the left upper quadrant. Degenerative changes are seen in the spine. XR/XR chest 2V IMPRESSION: No acute intrathoracic disease.
--- NOTE | ~2023-01-25 | XR_ITS ---
EXAMINATION: XR SHOULDER, RIGHT CLINICAL INFORMATION: Shoulder pain COMPARISON: None TECHNIQUE: Three views of the right shoulder. FINDINGS: Degenerative changes are seen at the glenohumeral joint with inferior glenoid osteophytes. Mild degenerative changes are seen at the AC joint. No bony destructive lesions. No fractures. XR/XR shoulder RT min 2V IMPRESSION: Degenerative changes as described above. No acute finding.
[2023-01-25 06:21] VITALS: BP 137/65; BP 161/88; PULSE 66; PULSE 81; RESP 16; TEMP 36.9; O2SAT 99; BMI 23.8
--- NOTE | 2023-01-25 07:12 | ED.EXTPRO ---
HPI - Extremity Problem General Chief complaint: Extremity Injury, Upper Stated complaint: Chronic Rt shoulder pain for a few months Time Seen by Provider: 01/25/23 06:51 Source: patient Mode of arrival: EMS Limitations: no limitations History of Present Illness HPI Narrative: This is a 77 years old man with history of alcoholic liver disease presented to the emergency department via ambulance with chief complaint of right shoulder pain. The pain has been ongoing for about a month reported an injury about 2 months ago denies any other complaints such as fever chest pain abdominal pain vomiting. MD Complaint: extremity pain Onset (ago): month(s) (2) Pain Consistency: constant Location: right Quality: aching Radiation: none Relieving factors: rest Exacerbating factors: range of motion Associated symptoms: denies other symptoms Related Data Home Medications Medication Instructions Recorded Confirmed amlodipine 5 mg tablet 1 tab PO DAILY 12/26/21 12/23/22 donepezil 10 mg tablet 1 tab PO BEDTIME 12/26/21 12/23/22 ferrous sulfate 325 mg (65 mg 1 tab PO DAILY 12/26/21 12/23/22 iron) tablet (iron) pantoprazole 40 mg tablet,delayed 1 tab PO DAILY 12/26/21 12/23/22 release sitagliptin phosphate 100 mg 1 tab PO DAILY 12/26/21 12/23/22 tablet (Januvia) gabapentin 100 mg capsule 1 cap PO TID 12/23/22 12/23/22 lactulose 10 gram/15 mL oral 15 ml PO TID 12/23/22 12/23/22 solution metformin 1,000 mg tablet 1 tab PO BIDWM 12/23/22 12/23/22 tamsulosin 0.4 mg capsule 1 cap PO DAILY 12/23/22 12/23/22 Allergies Allergy/AdvReac Type Severity Reaction Status Date / Time Penicillins [PENICILLINS] Allergy Unknown UNKNOWN Verified 12/27/21 17:28 Review of Systems Constitutional: Constitutional: Reports no additional constitutional complaints ENT: Reports system reviewed and no additional complaints, except as documented Respiratory: Respiratory: Reports no additional respiratory complaints Musculoskeletal: Musculoskeletal: Reports as per HPI [facility] Past Medical History Medical History Alcohol abuse Diabetes 1.5, managed as type 2 Hypertension Liver cirrhosis Surgical History S/P TIPS (transjugular intrahepatic portosystemic shunt) Family History Family History Father Cancer Mother DVT (deep venous thrombosis) Social History Social History Household Members: None Housing: Apartment Do you presently have visiting nurse or other home services: No Alcohol intake: never Patient Tobacco Use Status: Never used Tobacco Advance Directives: Yes Advance Directives Information Provided: No Advance Directives on File: No service: No Current occupational status: retired Physical Exam Vital Signs: Vital Signs: Last Vital Signs Temp 98.5 F 01/25/23 07:57 Pulse 65 01/25/23 07:57 Resp 17 01/25/23 07:57 BP 152/82 H 01/25/23 07:57 Pulse Ox 98 01/25/23 07:57 O2 Del Method 01/25/23 07:57 BMI result Body Mass Index 23.8 Const: Other: He looks well he is not toxic-appearing his vital signs are stable General: cooperative Nutritional Appearance: average body habitus and well nourished Orientation/consciousness: oriented to time and patient oriented x3 Limitations: no limitations HEENT: Head: Yes normal to inspection General nose exam: Normal external nose present Neck: Neck: Yes full ROM and Yes no lymphadenopathy Chest: Chest palpation & inspection: normal inspection of the chest Resp: Effort & Inspection: normal respiratory effort Auscultation: clear to auscultation bilaterally Cardio: Palpation: normal PMI Rate: regular rate Rhythm: regular rhythm GI: Inspection: Yes normal to inspection Palpation (GI): Soft to palpation, not firm, nontender and no guarding Percussion: Yes normal to percussion Skin: General skin exam: no rashes or lesions noted, elasticity normal and turgor normal Lesions: no lesions Rashes: no rashes Neuro: General: oriented to time and patient oriented x3 Cranial nerves: Yes CN's II-XII intact bilaterally Motor exam (neuro): 5/5 motor strength present throughout Extrem: Other: Tenderness in the right shoulder decreased range of motion no deformity seen Course Reevaluation(s) Reevaluation #1: Patient was seen by PT did well office physical therapy will be discharged home with home PT Time: 09:47 Medical Decision Making Medical Decision Making MDM Narrative: Patient presented with right shoulder pain going to get the imaging of the right shoulder a chest x-ray to rule out referred pain such as Pancoast tumor. Differential Diagnosis Differential Diagnoses: The differential diagnosis associated with the presentation includes DJD/rotator cuff injury/referred pain Independent Interpretation I performed an independent interpretation of an: Plain X-Ray Interpretation: no fx Radiology Impression Discussion of test interpretation with radiology: I have reviewed the radiologist's reading. Radiologist Impression: CLINICAL INFORMATION: Shoulder pain? COMPARISON: None? TECHNIQUE: Three views of the right shoulder. FINDINGS: Degenerative changes are seen at the glenohumeral joint with inferior glenoid osteophytes. Mild degenerative changes are seen at the AC joint. No bony destructive lesions. No fractures.? XR/XR shoulder RT min 2V IMPRESSION: Degenerative changes as described above. No acute finding. ? Dictated By: Jhonny Kern MD Signed By: <Electronically signed by Jhonny Kern MD in OV> 01/25/23 0908 Discharge Plan Discharge Clinical Impression: Right shoulder pain Patient Disposition: Home, Self-Care Instructions: Shoulder Pain (ED) Additional Instructions: Keep your foot elevated rest take the anti-inflammatory as directed Prescriptions: No Action tamsulosin 0.4 mg capsule 1 cap PO DAILY metformin 1,000 mg tablet 1 tab PO BIDWM gabapentin 100 mg capsule 1 cap PO TID lactulose 10 gram/15 mL solution 15 ml PO TID donepezil 10 mg tablet 1 tab PO BEDTIME amlodipine 5 mg tablet 1 tab PO DAILY pantoprazole 40 mg tablet,delayed release (DR/EC) 1 tab PO DAILY ferrous sulfate [iron] 325 mg (65 mg iron) tablet 1 tab PO DAILY Januvia 100 mg tablet 1 tab PO DAILY Referrals: Lisandro Dao MD [Physician] - 2 days
[2023-01-25 07:57] VITALS: BP 152/82; PULSE 65; RESP 17; TEMP 36.9; O2SAT 98
[2023-01-25 09:48] VITALS: BP 152/82; PULSE 65; O2SAT 98
--- NOTE | 2023-01-25 10:19 | MHC.CM.ED ---
Received case management consult from Dr Hi. Patient came to the ER due to shoulder pain. Work up essentially negative. Physical therapy rec home therapy. Met with patient in regards to discharge planning. Patient lives alone, ambulates with a walker and is not active with any services at this time. PCP is Haydee John at [facility]. Patient received 3 Pfizer vaccines. Patient aware [facility] referral has to be broadcasted. rachel ordered to transport patient home. [facility]. Patient, Nic VERAS and Dr Hi aware. Continue to monitor for d/c needs.
== END 2023-01-25 10:27 | disposition home or self-care (01) ==
PROVIDERS: Emergency Provider Emergency Medicine; PCP Physician Assistant
DX: M25.511 Pain in right shoulder (principal); R07.89 Other chest pain; R26.2 Difficulty in walking, not elsewhere classified
CPT/HCPCS: 71046; 73030; 97162; 99284